=== PATIENT | female | born 1955 | race Caucasian/White ===

== ENCOUNTER 2017-12-13 13:48 | Emergency (ER) | payer OTHER ==
[2017-12-13] MEDS ORDERED: Sodium Chloride 0.9% 1000 ML 1,000 ML IV STA (14:11)
[2017-12-13] MEDS ORDERED: THORAZINE 50 MG*** 50 MG in Sodium Chloride 0.9% 100 ML IVPB 100 ML IV ONE (14:11)
[2017-12-13] MEDS ORDERED: Magnesium 1 Gm / 100 Ml D5W*** 100 ML IV SCH (14:15)
--- NOTE | 2017-12-13 14:16 | ERPHSYRPT ---
- History of Present Illness Time Seen by Provider: 12/13/17 14:00 Source: patient, family Patient Subjective Stated Complaint: Pt arrives to ER with c/o migraine that pt states "started in my right arm and went up into my head" since Monday. Denies N /V/D, fever, abodminal pain or any other sx. Triage Nursing Assessment: Pt denies photophobia. Appears to be in pain but is in no acute distress at this time. Physician History: CC: headache Hx: 62 y/o patient of Dr CORINNA Bradley. She has hx of fibromyalgia, migraines, and arnold chiari. She has frequent headaches, last this bad was a few months ago. She has headache since Monday (3 days), started with pain in her right arm, then right neck and then head. Unable to sleep. Not better with ASA. No fever or chills. No photophobia. Has been weaned off norco. No N/T/W. No injury. Quality: aching Severity of Pain-Max: severe Severity of Pain-Current: severe Allergies/Adverse Reactions: betamethasone [From Celestone] Allergy (Intermediate, Verified 07/06/15 06:32) itchy throat some tightness ketorolac [From Toradol] Allergy (Intermediate, Verified 12/13/17 14:02) Itching morphine Allergy (Intermediate, Verified 12/13/17 14:02) Itching Home Medications: Fluoxetine HCl [Prozac] 1 tab PO DAILY 04/17/12 [History] Albuterol Sulfate [Proventil Hfa] 2 puffs IH Q4HPRN PRN 07/01/15 [History] Hctz/Triamterene 25/37.5 mg [Maxzide 25MG] 25 mg PO DAILY 12/13/17 [History] Lisinopril [Lisinopril] 10 mg PO DAILY 12/13/17 [History] Omeprazole [Prilosec] 20 mg PO BID 12/13/17 [History] Hx Tetanus, Diphtheria Vaccination/Date Given: Yes Hx Influenza Vaccination/Date Given: Yes Hx Pneumococcal Vaccination/Date Given: Yes Immunizations Up to Date: Yes - Review of Systems Constitutional: No Fever, No Chills Eyes: No Photophobia, No Vision Changes Ears, Nose, & Throat: No Symptoms Respiratory: No Symptoms Cardiac: No Chest Pain Abdominal/Gastrointestinal: No Abdominal Pain, No Nausea, No Vomiting Musculoskeletal: Myalgias, No Back Pain Skin: No Rash Neurological: Headache, No Focal Weakness, No Parasthesia All Other Systems: Reviewed and Negative - Past Medical History Pertinent Past Medical History: Yes Neurological History: No Pertinent History ENT History: No Pertinent History Cardiac History: Hypertension Respiratory History: COPD Endocrine Medical History: No Pertinent History Musculoskeletal History: Fibromyalgia, Osteoporosis GI Medical History: No Pertinent History Psycho-Social History: Anxiety Female Reproductive Disorders: Other Other Medical History: nya malformation, had brain surgery 1996, - Past Surgical History Past Surgical History: Yes Neuro Surgical History: Neurological Surgery Cardiac: No Pertinent History Respiratory: No Pertinent History Gastrointestinal: No Pertinent History Genitourinary: No Pertinent History Musculoskeletal: No Pertinent History Female Surgical History: Hysterectomy Other Surgical History: Archold Chiari Malformation - Social History Smoking Status: Current every day smoker How long have you smoked: 40 yrs Exposure to second hand smoke: Yes Drug Use: none Patient Lives Alone: No - Female History Hx Last Menstrual Period: hysterectomy Hx Now: No - Nursing Vital Signs Nursing Vital Signs: Initial Vital Signs Temperature 98.6 F 12/13/17 13:51 Pulse Rate 98 H 12/13/17 13:51 Respiratory Rate 18 12/13/17 13:51 Blood Pressure 156/97 12/13/17 13:51 O2 Sat by Pulse Oximetry 98 12/13/17 13:51 Pain Scale Pain Intensity 4 - Physical Exam General Appearance: alert Eye Exam: PERRL/EOMI Ears, Nose, Throat Exam: normal ENT inspection, moist mucous membranes Neck Exam: normal inspection, non-tender, supple Respiratory Exam: normal breath sounds, lungs clear Cardiovascular Exam: regular rate/rhythm Gastrointestinal/Abdominal Exam: soft, No tenderness, No distention Back Exam: normal inspection, normal range of motion Extremity Exam: normal inspection, normal range of motion Mental Status Exam: alert, 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, cooperative body trimmer Exam: normal hearing, normal speech Coordination/Gait Exam: normal cerebellar function Motor/Sensory Exam: no motor deficit, no sensory deficit, no pronator drift Skin Exam: warm, dry, No rash SpO2 Interpretation: normal SpO2: 98 Oxygen Delivery: Room Air - Course Nursing assessment & vital signs reviewed: Yes Ordered Tests: Active Orders 24 hr Category Date Time Status Housekeeper Home STAT Care 12/13/17 14:11 Active IV Insertion STAT Care 12/13/17 14:11 Active Pulse Oximetry (ED) STAT Care 12/13/17 14:11 Active VENOUS BLOOD GAS Urgent Lab 12/13/17 15:00 Completed Medication Summary Generic Name Dose Route Start Last Admin Trade Name To PRN Reason Stop Dose Admin Dexamethasone Sodium Phosphate 10 mg 12/13/17 16:27 Decadron 10mg Inj. IV 12/13/17 16:28 STAT ONE Discontinued Medications Generic Name Dose Route Start Last Admin Trade Name To PRN Reason Stop Dose Admin Chlorpromazine HCl 50 mg/ 102 mls @ 100 mls/hr 12/13/17 14:11 12/13/17 14:54 Sodium Chloride IV 12/13/17 15:12 100 mls/hr STAT ONE Administration Magnesium Sulfate/Dextrose 100 mls @ 100 mls/hr 12/13/17 14:15 12/13/17 14:44 Magnesium 1 Gm / 100 Ml D5w IV 12/13/17 16:14 100 mls/hr Q1H NANDO Administration Sodium Chloride 1,000 mls @ 999 mls/hr 12/13/17 14:11 12/13/17 14:44 Sodium Chloride 0.9% 1000 Ml IV 12/13/17 15:11 999 mls/hr .Q1H1M STA Administration Magnesium Sulfate/Dextrose Confirm 12/13/17 14:36 Magnesium 1 Gm / 100 Ml D5w Administered 12/13/17 14:37 Dose 100 mls @ ud IV .STK-MED ONE Sodium Chloride Confirm 12/13/17 14:36 Sodium Chloride 0.9% 1000 Ml Administered 12/13/17 14:37 Dose 1,000 mls @ ud .ROUTE .STK-MED ONE Magnesium Sulfate/Dextrose Confirm 12/13/17 14:40 Magnesium 1 Gm / 100 Ml D5w Administered 12/13/17 14:41 Dose 100 mls @ ud IV .STK-MED ONE Lab/Rad Data: Laboratory Results 12/13/17 Range/Units 15:00 pO2/FiO2 Ratio 21.0 % VBG pH 7.37 (7.32-7.42) VBG pCO2 at Pat Temp 43 (42-55) mm/Hg VBG pO2 at Pat Temp 42 H (25-40) mm/Hg VBG HCO3 24.9 (22-28) meq/L VBG O2 Sat ([place]) 79.0 L (95-100) VBG Base Excess -0.6 (-2.0-2.0) VBG Hemoglobin 13.4 VBG Carboxyhemoglobin 0.0 (0.0-6.9) % T HGB POC Potassium 3.7 (3.5-5.1) - Progress Progress Note: 12/13/17 14:16 She is allergic to toradol. States "I just want to be able to sleep." No reglan available. Will given thorazine gtt for headache. 12/13/17 16:27 She feels better after mag sulfate, IVF, and thorazine. She still has some lancinating pain in right head. No rash. ?neuritis. Will give decadron. Release to follow up with Dr Barakat. Counseled pt/family regarding: lab results, diagnosis, need for follow-up - Departure Time of Disposition: 16:28 Departure Disposition: Home Clinical Impression: Headache Condition: Stable Critical Care Time: No Referrals: NHUNG BARAKAT [Primary Care Provider] - Instructions: Headache, Adult (DC) Additional Instructions: HEADACHE 1. After discharge from the emergency department, you should rest at home in a cool, dark, quiet place for 12-24 hours. 2. If any of the following signs or symptoms are noticed, you should be re- evaluated right away: A. Visual changes B. Stiff Neck C. Change in quality or location of pain D. Fever E. Recurrent vomiting 3. If pain medications were prescribed or given, they may cause drowsiness. No driving tonite and stay with . Call in AM to see Dr Barakat this week for recheck. Return for problems or concerns.
[2017-12-13] MEDS ORDERED: Magnesium 1 Gm / 100 Ml D5W*** 100 ML IV ONE ×2 (14:36→14:40)
[2017-12-13] MEDS ORDERED: Sodium Chloride 0.9% 1000 ML 1,000 ML ONE (14:36)
[2017-12-13 15:11] LABS: VBG BASE EXCESS -0.6 (-2.0-2.0); VBG HCO3- 24.9 meq/L (22-28); VBG HEMOGLOBIN 13.4; VBG POTASSIUM 3.7 (3.5-5.1); VBG pH 7.37 (7.32-7.42)
[2017-12-13] MEDS ORDERED: DECADRON 10MG INJ. IV ONE (16:27)
[2017-12-13 16:29] VITALS: O2SAT 98
[2017-12-13] MEDS ORDERED: DECADRON 10MG INJ. ONE (16:29)
[2017-12-13] MEDS ORDERED: Sodium Chloride 0.9% 100 ML IVPB 100 ML IV ONE (16:29)
[2017-12-13 17:43] VITALS: BP 109/89; PULSE 101
== END 2017-12-13 17:47 | disposition home or self-care (01) ==
LOC: ED 13:48
DX: R51 Headache (principal); Z79.899 Other long term (current) drug therapy
CPT/HCPCS: 36000; 82805; 93041; 96360; 96365; 96367; 96374; 99284; J1100; J3230; J3475

== ENCOUNTER 2021-07-05 11:15 | Emergency (ER) | payer OTHER ==
--- NOTE | 2021-07-05 11:22 | ERPHSYRPT ---
- History of Present Illness Time Seen by Provider: 07/05/21 11:22 Source: patient Exam Limitations: no limitations Physician History: This is a right-handed 66-year-old white female patient of Dr. Barakat who stated that she tripped over something and fell into a couch injuring her left upper arm and elbow. She did not lose consciousness. There is no neck pain or head pain. Patient takes Percocet chronically and took one of her Percocet pills at 8 AM this morning. Since her fall she has not taken any Percocet medication. Occurred: just prior to arrival Reason for Fall: tripped Injuries/Pain Location: upper extremity Loss of Consciousness: no loss of consciousness (Left) Quality: aching Severity of Pain-Max: moderate Severity of Pain-Current: moderate Modifying Factors: Improves With: movement Associated Symptoms (Fall): extremity injury (Pain left upper extremity) Allergies/Adverse Reactions: betamethasone [From Celestone] Allergy (Intermediate, Verified 07/05/21 11:29) itchy throat some tightness ketorolac [From Toradol] Allergy (Intermediate, Verified 07/05/21 11:29) Itching morphine Allergy (Intermediate, Verified 07/05/21 11:29) Itching Home Medications: Fluoxetine HCl [Prozac] 1 tab PO DAILY 04/17/12 [History] Albuterol Sulfate [Proventil Hfa] 2 puffs IH Q4HPRN PRN 07/01/15 [History] Hctz/Triamterene 25/37.5 mg [Maxzide 25MG] 25 mg PO DAILY 12/13/17 [History] Omeprazole [Prilosec] 20 mg PO BID 12/13/17 [History] lisinopriL [Lisinopril] 10 mg PO DAILY 12/13/17 [History] Cyclobenzaprine HCl [Flexeril] 5 mg PO DAILY 07/05/21 [History] Oxycodone HCl/Acetaminophen [Oxycodone-Acetaminophen 5-325] 1 each PO DAILY 07/05/21 [History] Hx Tetanus, Diphtheria Vaccination/Date Given: Yes Hx Influenza Vaccination/Date Given: Yes Hx Pneumococcal Vaccination/Date Given: Yes Travel Risk - International Travel Have you traveled outside of the country in past 3 weeks: No - Coronavirus Screening Are you exhibiting any of the following symptoms?: No Close contact with a COVID-19 positive Pt in past 14-21 Days: No - Review of Systems Constitutional: No Symptoms Eyes: No Symptoms Ears, Nose, & Throat: No Symptoms Respiratory: No Symptoms Cardiac: No Symptoms Abdominal/Gastrointestinal: No Symptoms Genitourinary Symptoms: No Symptoms Musculoskeletal: Fall (Left upper arm), Injury Skin: No Symptoms Neurological: No Symptoms Psychological: No Symptoms Endocrine: No Symptoms Hematologic/Lymphatic: No Symptoms Immunological/Allergic: No Symptoms All Other Systems: Reviewed and Negative - Past Medical History Pertinent Past Medical History: Yes Neurological History: No Pertinent History ENT History: No Pertinent History Cardiac History: Hypertension Respiratory History: COPD Endocrine Medical History: No Pertinent History Musculoskeletal History: Fibromyalgia, Osteoporosis GI Medical History: No Pertinent History Psycho-Social History: Anxiety Female Reproductive Disorders: Other Other Medical History: nya malformation, had brain surgery 1996, - Past Surgical History Past Surgical History: Yes Neuro Surgical History: Neurological Surgery Cardiac: No Pertinent History Respiratory: No Pertinent History Gastrointestinal: No Pertinent History Genitourinary: No Pertinent History Musculoskeletal: No Pertinent History Female Surgical History: Hysterectomy Other Surgical History: Archold Chiari Malformation - Social History Smoking Status: Current every day smoker How long have you smoked: 40 yrs Exposure to second hand smoke: Yes Drug Use: none Patient Lives Alone: No - Nursing Vital Signs Nursing Vital Signs: Initial Vital Signs Temperature 97.6 F 07/05/21 11:22 Pulse Rate 93 H 07/05/21 11:22 Respiratory Rate 20 07/05/21 11:22 Blood Pressure 106/76 07/05/21 11:22 O2 Sat by Pulse Oximetry 96 07/05/21 11:22 Pain Scale Pain Intensity 10 - [place] Coma Score Best Eye Response (Tobias): (4) open spontaneously Best Verbal Response ([place]): (5) oriented Best Motor Response ([place]): (6) obeys commands [place] Total: 15 - Physical Exam General Appearance: no apparent distress, alert, anxiety Head Injury: no evidence of injury Eye Exam: PERRL/EOMI, eyes nml inspection ENT Exam: airway nml, nml ext.inspection Neck Exam: supple, trachea midline, full range of motion, normal alignment, normal inspection Respiratory/Chest Exam: No chest tenderness, No respiratory distress, No crepitus Cardiovascular Exam: normal peripheral pulses Gastrointestinal Exam: No tenderness Rectal Exam: not done Back Exam: normal inspection, normal range of motion, No CVA tenderness, No vertebral tenderness Extremity Exam: normal inspection, limited range of motion (Secondary to pain), tenderness (Left upper humerus mid humerus distal humerus at elbow site with palpation), No deformities, No evidence of injury Neurologic Exam: alert, 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, cooperative, synthetic plasterer II-XII nml as tested, normal mood/affect, nml cerebellar function, nml station & gait, sensation nml Skin Exam: normal color, warm, dry SpO2 Interpretation: normal O2 Delivery: Room Air - Course Nursing assessment & vital signs reviewed: Yes Ordered Tests: Active Orders 24 hr Category Date Time Status Sling Application STAT Care 07/05/21 12:25 Active ELBOW (MINIMUM 3 VIEWS) Stat Exams 07/05/21 11:37 Completed HUMERUS Stat Exams 07/05/21 11:37 Completed SHOULDER Stat Exams 07/05/21 11:37 Completed Medication Summary Discontinued Medications Generic Name Dose Route Start Last Admin Trade Name Freq PRN Reason Stop Dose Admin Hydromorphone HCl 1 mg 07/05/21 12:31 07/05/21 12:34 Hydromorphone 1 Mg/1ml Inj 1 Mg/Ml Syringe IM 07/05/21 12:32 1 mg STAT ONE Administration Hydromorphone HCl Confirm 07/05/21 12:31 Hydromorphone 1 Mg/1ml Inj 1 Mg/Ml Syringe Administered 07/05/21 12:32 Dose 1 mg .ROUTE .STK-MED ONE Ondansetron HCl 4 mg 07/05/21 12:25 07/05/21 12:34 Zofran 4 Mg/Udtablet Orally Disintegrating PO 07/05/21 12:26 4 mg STAT ONE Administration Ondansetron HCl Confirm 07/05/21 12:31 Zofran 4 Mg/Udtablet Orally Disintegrating Administered 07/05/21 12:32 Dose 4 mg .ROUTE .STK-MED ONE - Progress Progress: improved, pain not gone completely, re-examined Progress Note: 07/05/21 12:26 X-ray of left shoulder shows a nondisplaced humeral head/neck comminuted fracture. Left humerus x-ray shows a nondisplaced humeral head/neck comminuted fracture. Left elbow x-ray shows no acute fracture or dislocation. 07/05/21 12:35 Medical decision making: We attempted to obtain an orthopedic clinic visit this afternoon for this patient. However, they are not in this afternoon but will be there first thing in the morning at 8 AM. Patient will be sent home with a sling in place. Patient has Percocet pain medicine at home. She will follow up in the [facility] orthopedic clinic tomorrow morning at 8 AM Counseled pt/family regarding: diagnosis, need for follow-up, rad results - Departure Departure Disposition: Home Clinical Impression: Closed left humeral fracture Condition: Stable Critical Care Time: No Referrals: NHUNG BARAKAT [Primary Care Provider] - [facility]-Ortho M-F [phone] Additional Instructions: Wear sling for comfort. Continue your Percocet pain medicine as prescribed. Follow-up in our [facility] orthopedic clinic tomorrow (07/06/2021) at 8 AM.
--- NOTE | 2021-07-05 12:15 | XRAY ---
Indication: Pain following fall. Comparison: None 3 view left elbow demonstrates osteopenia. No other bony, articular, or soft tissue abnormalities.
--- NOTE | 2021-07-05 12:15 | XRAY ---
Indication: Pain following fall. Comparison: None 2 view left humerus demonstrates osteopenia and nondisplaced humeral head/neck comminuted fracture. No other bony, articular, or soft tissue abnormalities.
--- NOTE | 2021-07-05 12:20 | XRAY ---
Indication: Pain following fall. Comparison: None 3 view left shoulder demonstrates osteopenia and nondisplaced humeral head/neck comminuted fracture. No other bony, articular, or soft tissue abnormalities.
[2021-07-05] MEDS ORDERED: ZOFRAN ODT 4 MG PO ONE (12:25)
[2021-07-05] MEDS ORDERED: Hydromorphone 1 mg/ml Injection ONE (12:31)
[2021-07-05] MEDS ORDERED: ZOFRAN ODT 4 MG ONE (12:31)
[2021-07-05] MEDS ORDERED: Hydromorphone 1 mg/ml Injection IM ONE (12:31)
[2021-07-05 13:26] VITALS: BP 120/77; PULSE 90; O2SAT 97
== END 2021-07-05 13:17 | disposition home or self-care (01) ==
LOC: ED 11:15
DX: S42.402A Unspecified fracture of lower end of left humerus, initial encounter for closed fracture (principal); W01.190A Fall on same level from slipping, tripping and stumbling with subsequent striking against furniture, initial encounter; Y93.89 Activity, other specified; Y92.89 Other specified places as the place of occurrence of the external cause; M79.622 Pain in left upper arm; Z79.899 Other long term (current) drug therapy; M81.0 Age-related osteoporosis without current pathological fracture
CPT/HCPCS: 73030; 73060; 73080; 96372; 99284; J1170; Q0162

== ENCOUNTER 2021-11-24 14:28 | Day surgery (SDC) | payer OTHER ==
[2012-07-08 01:00] VITALS: BP 106/70
[~2021-11-24 14:28] MED LIST: DIPRIVAN 200 MG/20 ML IV ONE
[2021-11-24] MEDS ORDERED: BUPIVACAINE 0.5% VIAL IJ ONE (14:29)
[2021-11-24] MEDS ORDERED: Depo-Medrol 40 MG/ML IM ONE (14:29)
[2021-11-24] MEDS ORDERED: Lactated Ringers 1,000 ML IV ONE (15:52)
--- NOTE | 2021-11-24 18:31 | XRAY ---
Indication: Left shoulder injection. Intraoperative fluoroscopy provided for 12 seconds. Single digital spot image submitted for interpretation demonstrates needle tip projecting over the left glenohumeral joint superiorly. Small amount of contrast injected for needle tip placement. Correlate with intraoperative findings/report.
--- NOTE | 2021-11-25 08:35 | XRAY ---
12 seconds fluoroscopy time in surgery for intra-articular injection of the left shoulder.
== END 2021-11-24 18:00 | disposition home or self-care (01) ==
LOC: SDC-PAIN 14:28
PROVIDERS: ATTEND Psychiatry & Neurology Pain Medicine
DX: M19.012 Primary osteoarthritis, left shoulder (principal); I10 Essential (primary) hypertension; Z79.899 Other long term (current) drug therapy
CPT/HCPCS: 20610; 73030; 77002; J1030; J2704; Q9966

== ENCOUNTER 2022-02-23 11:50 | Emergency (ER) | payer MEDICARE, OTHER ==
[2022-02-23] MEDS ORDERED: BENADRYL 50 MG/ML IV ONE (12:17)
[2022-02-23] MEDS ORDERED: Sodium Chloride 0.9% 1000 ML 1,000 ML IV STA (12:17)
[2022-02-23] MEDS ORDERED: TYLENOL 325 MG PO ONE (12:17)
--- NOTE | 2022-02-23 12:23 | ERPHSYRPT ---
- History of Present Illness Time Seen by Provider: 02/23/22 12:12 Source: patient Exam Limitations: no limitations Patient Subjective Stated Complaint: headache since yesterday, left side of head that is radiating down to the left jaw, pulsating pain that doesn't quit Triage Nursing Assessment: Pt brought to the ER by her , tachycardic, h ypertensive, crying, rates pain 10/10, no difficulties with strength, hx of brain surgery, has taken percocet since yesterday with no relief, little sleep last night, denies blurred vision, denies N&V, pain is on the left side of head and radiates downward toward her jaw, eating hurts her jaw but she did eat some cereal prior to taking percocet at 1000, states that it feels like labor pains in her head Physician History: Patient here with headache 10 out of 10 starting yesterday. Left-sided. Maybe complains of some mild associated left sided numbness. No falls no trauma. No fever no chills. No signs of meningitis. Patient states she has a history of Chiari malformation with surgery by Dr. Rene Franco of [place]. Timing/Duration: yesterday Quality: stabbing Head Pain Location: parietal Severity of Pain-Max: mild Severity of Pain-Current: mild Recent Head Trauma: no recent headache/trauma Modifying Factors: Improves With: other Associated Symptoms: other (numbness) Previous symptoms: other (previous brain surgery ) Allergies/Adverse Reactions: betamethasone [From Celestone] Allergy (Intermediate, Verified 02/23/22 12:04) itchy throat some tightness ketorolac [From Toradol] Allergy (Intermediate, Verified 02/23/22 12:04) Itching morphine Allergy (Intermediate, Verified 02/23/22 12:04) Itching Home Medications: Fluoxetine HCl [Prozac] 20 mg PO DAILY 04/17/12 [History] Hctz/Triamterene 25/37.5 mg [Maxzide 25MG] 25 mg PO DAILY 12/13/17 [History] Omeprazole [Prilosec] 20 mg PO BID 12/13/17 [History] lisinopriL [Lisinopril] 10 mg PO DAILY 12/13/17 [History] Cyclobenzaprine HCl [Flexeril] 5 mg PO DAILY PRN 07/05/21 [History] Oxycodone HCl/Acetaminophen [Oxycodone-Acetaminophn 7.5-325] 1 tab PO Q6H PRN 02/23/22 [History] Ropinirole HCl 1 mg PO HS 02/23/22 [History] Hx Tetanus, Diphtheria Vaccination/Date Given: Yes Hx Influenza Vaccination/Date Given: Yes Hx Pneumococcal Vaccination/Date Given: Yes Travel Risk - International Travel Have you traveled outside of the country in past 3 weeks: No - Coronavirus Screening Are you exhibiting any of the following symptoms?: No Close contact with a COVID-19 positive Pt in past 14-21 Days: No - Vaccine Status Have you recieved a Covid-19 vaccination: Yes 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[employer] - Vaccination Dates Date of 2cond Vaccination (if applicable): none - Review of Systems Constitutional: No Fever, No Chills Eyes: No Symptoms Ears, Nose, & Throat: No Symptoms Respiratory: No Cough, No Dyspnea Cardiac: No Chest Pain, No Edema, No Syncope Abdominal/Gastrointestinal: No Abdominal Pain, No Nausea, No Vomiting, No Diarrhea Genitourinary Symptoms: No Dysuria Musculoskeletal: No Back Pain, No Neck Pain Skin: No Rash Neurological: Headache, No Dizziness, No Focal Weakness, No Sensory Changes Psychological: No Symptoms Endocrine: No Symptoms All Other Systems: Reviewed and Negative - Past Medical History Pertinent Past Medical History: Yes Neurological History: No Pertinent History ENT History: No Pertinent History Cardiac History: Hypertension Respiratory History: COPD Endocrine Medical History: No Pertinent History Musculoskeletal History: Fibromyalgia, Osteoporosis GI Medical History: No Pertinent History Psycho-Social History: Anxiety Female Reproductive Disorders: Other Other Medical History: nya malformation, had brain surgery 1996, - Past Surgical History Past Surgical History: Yes Neuro Surgical History: Neurological Surgery Cardiac: No Pertinent History Respiratory: No Pertinent History Gastrointestinal: No Pertinent History Genitourinary: No Pertinent History Musculoskeletal: No Pertinent History Female Surgical History: Hysterectomy Other Surgical History: Archold Chiari Malformation - Social History Smoking Status: Current every day smoker How long have you smoked: 40 yrs Exposure to second hand smoke: Yes Drug Use: none Patient Lives Alone: No - Nursing Vital Signs Nursing Vital Signs: Initial Vital Signs Temperature 97.6 F 02/23/22 11:55 Pulse Rate 112 H 02/23/22 11:55 Blood Pressure 154/97 02/23/22 11:55 O2 Sat by Pulse Oximetry 97 02/23/22 11:55 Pain Scale Pain Intensity 8 - Physical Exam General Appearance: no apparent distress Eye Exam: PERRL/EOMI Ears, Nose, Throat Exam: normal ENT inspection, moist mucous membranes Neck Exam: normal inspection, supple, full range of motion, No meningismus Respiratory Exam: normal breath sounds, lungs clear Cardiovascular Exam: regular rate/rhythm, normal heart sounds Gastrointestinal/Abdominal Exam: soft, No tenderness, No distention Back Exam: normal inspection, normal range of motion Extremity Exam: normal inspection, normal range of motion Mental Status Exam: alert, 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, 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 Exam: normal hearing, normal speech, PERRL, No facial asymmetry, No facial droop, No facial paresthesias, No facial weakness, No gaze palsy Coordination/Gait Exam: normal cerebellar function Motor/Sensory Exam: no motor deficit, no sensory deficit Skin Exam: normal color, warm, dry, No rash SpO2: 97 - Course Nursing assessment & vital signs reviewed: Yes EKG Interpreted by Me: Sinus Rhythm Ordered Tests: Active Orders 24 hr Category Date Time Status IV Insertion STAT Care 02/23/22 12:17 Active HEAD WITHOUT CONTRAST [CT] Stat Exams 02/23/22 13:15 Completed CBC W DIFF Stat Lab 02/23/22 12:15 Completed CMP Stat Lab 02/23/22 12:15 Completed PROTIME WITH INR Stat Lab 02/23/22 12:15 Completed UA W/RFX CULTURE Stat Lab 02/23/22 13:05 Ordered Urine Triage Profile Stat Lab 02/23/22 13:05 Ordered Medication Summary Discontinued Medications Generic Name Dose Route Start Last Admin Trade Name To PRDoug Reason Stop Dose Admin Acetaminophen 975 mg 02/23/22 12:17 02/23/22 12:35 Acetaminophen 325 Mg Tablet PO 02/23/22 12:18 975 mg STAT ONE Administration Acetaminophen Confirm 02/23/22 12:27 Acetaminophen 325 Mg Tablet Administered 02/23/22 12:28 Dose 975 mg .ROUTE .STK-MED ONE Acetaminophen Confirm 02/23/22 12:37 Acetaminophen 325 Mg Tablet Administered 02/23/22 12:38 Dose 325 mg .ROUTE .STK-MED ONE Diphenhydramine HCl 25 mg 02/23/22 12:17 02/23/22 12:34 Diphenhydramine Hcl 50 Mg/Ml Vial IV 02/23/22 12:18 25 mg STAT ONE Administration Diphenhydramine HCl Confirm 02/23/22 12:27 Diphenhydramine Hcl 50 Mg/Ml Vial Administered 02/23/22 12:28 Dose 50 mg .ROUTE .STK-MED ONE Droperidol 1.25 mg 02/23/22 12:17 02/23/22 12:33 Droperidol 5 Mg/2 Ml Vial IV 02/23/22 12:18 1.25 mg STAT ONE Administration Droperidol Confirm 02/23/22 12:27 Droperidol 5 Mg/2 Ml Vial Administered 02/23/22 12:28 Dose 5 mg .ROUTE .STK-MED ONE Sodium Chloride 1,000 mls @ 999 mls/hr 02/23/22 12:17 02/23/22 12:32 Sodium Chloride 0.9% 1000 Ml IV 02/23/22 13:17 999 mls/hr .Q1H1M STA Administration Sodium Chloride Confirm 02/23/22 12:27 Sodium Chloride 0.9% 1000 Ml Administered 02/23/22 12:28 Dose 1,000 mls @ ud .ROUTE .STK-MED ONE Lab/Rad Data: Laboratory Result Diagrams 02/23/22 12:15 02/23/22 12:15 Laboratory Results 02/23/22 02/23/22 02/23/22 Range/Units 12:15 12:15 12:15 WBC 9.5 (4.0-10.5) x10^3/uL RBC 4.03 L (4.1-5.4) x10^6/uL Hgb 12.9 (12.0-16.0) g/dL Hct 38.5 (35-47) % MCV 95.5 (78-100) fL MCH 32.0 (26-32) pg MCHC 33.5 (32-36) g/dL RDW 13.0 (11.5-14.0) % Plt Count 291 (150-450) x10^3/uL MPV 9.8 (7.5-11.0) fL Gran % 71.8 H (36.0-66.0) % Immature Gran % (Auto) 0.2 (0.00-0.4) % Nucleat RBC Rel Count 0.0 (0.00-0.1) % Eos # (Auto) 0.11 (0-0.5) x10^3/uL Immature Gran # (Auto) 0.02 (0.00-0.03) x10^3u/L Absolute Lymphs (auto) 1.85 (1.0-4.6) x10^3/uL Absolute Monos (auto) 0.57 (0.0-1.3) x10^3/uL Absolute Nucleated RBC 0.00 (0.00-0.01) x10^3u/L Lymphocytes % 19.5 L (24.0-44.0) % Monocytes % 6.0 (0.0-12.0) % Eosinophils % 1.2 (0.00-5.0) % Basophils % 1.3 (0.0-0.4) % Absolute Granulocytes 6.81 (1.4-6.9) x10^3/uL Basophils # 0.12 (0-0.4) x10^3/uL PT 10.6 (9.4-12.5) SECONDS INR 1.00 (0.8-3.0) Sodium 140 (137-145) mmol/L Potassium 3.7 (3.5-5.1) mmol/L Chloride 103 (98-107) mmol/L Carbon Dioxide 27 (22-30) mmol/L Anion Gap 12.9 (5-15) MEQ/L BUN 15 (7-17) mg/dL Creatinine 1.22 H (0.52-1.04) mg/dL Estimated GFR 47.2 ML/MIN Glucose 156 H (74-106) mg/dL Calcium 9.4 (8.4-10.2) mg/dL Total Bilirubin 0.40 (0.2-1.3) mg/dL AST 21 (14-36) U/L ALT 13 (0-35) U/L Alkaline Phosphatase 73 (38-126) U/L Serum Total Protein 7.2 (6.3-8.2) g/dL Albumin 4.1 (3.5-5.0) g/dL - Progress Progress: improved Air Movement: good Progress Note: 02/23/22 12:22 Differential diagnosis includes head bleed, migraine, narcotic rebound headache. -Plan for head CT, fluids, migraine cocktail, Tylenol, basic labs. 02/23/22 13:40 Headache almost completely resolved with interventions here. Head CT showed no head bleed, other abnormalities. We will give a dose of Decadron and Toradol here. Patient stated Toradol allergy is itching. However I do believe Decadron will help with her symptoms as well. Discussing with the patient, I do believe she is having narcotic withdrawal headaches. Patient states that she takes 4-5 Percocet a day. I did discuss the risks and benefits of long-term narcotic use and how this can lead to severe rebound headaches. She states her understanding and will discuss all this with her PCP. Strict return precautions given, patient should absolutely return here for any new or changing symptoms. Complete neurological reexam remained stable. No signs of meningitis. Low suspicion for stroke or subarachnoid. - Departure Departure Disposition: Home Clinical Impression: Headache Condition: Stable Critical Care Time: No Referrals: NHUNG CASTANON [Primary Care Provider] - Follow up/PCP as directed Instructions: Headache, Adult (DC)
[2022-02-23] MEDS ORDERED: BENADRYL 50 MG/ML ONE (12:27)
[2022-02-23] MEDS ORDERED: TYLENOL 325 MG ONE ×2 (12:27→12:37)
[2022-02-23] MEDS ORDERED: Sodium Chloride 0.9% 1000 ML 1,000 ML ONE (12:27)
[2022-02-23 12:34] LABS: Absolute Neutrophil Ct (ANC) 6.81 x10^3/uL (1.4-6.9); Basophil (Absolute #) 0.12 x10^3/uL (0-0.4); Eosinophil % 1.2 % (0.00-5.0); Eosinophil (Absolute #) 0.11 x10^3/uL (0-0.5); Hematocrit 38.5 % (35-47); Hemoglobin 12.9 g/dL (12.0-16.0); Lymphocyte (Absolute #) 1.85 x10^3/uL (1.0-4.6); Lymphocytes % 19.5 % (24.0-44.0); Mean Cell Volume 95.5 fL (78-100); Mean Corpuscular Hgb Concent. 33.5 g/dL (32-36); Mean Platelet Volume 9.8 fL (7.5-11.0); Monocyte (Absolute #) 0.57 x10^3/uL (0.0-1.3); Neutrophil % 71.8 % (36.0-66.0); Platelet Count 291 x10^3/uL (150-450); Red Blood Count 4.03 x10^6/uL (4.1-5.4); White Blood Count 9.5 x10^3/uL (4.0-10.5)
[2022-02-23 12:41] LABS: ALBUMIN 4.1 g/dL (3.5-5.0); ANION GAP 12.9 MEQ/L (5-15); BILIRUBIN,TOTAL 0.4 mg/dL (0.2-1.3); Calcium 9.4 mg/dL (8.4-10.2); Creatinine 1 1.22 mg/dL (0.52-1.04); EST GLOMERULAR FILTRATION RATE 47.2 ML/MIN; Potassium 3.7 mmol/L (3.5-5.1); Total Protein 7.2 g/dL (6.3-8.2)
[2022-02-23 12:53] LABS: PROTIME 10.6 SECONDS (9.4-12.5)
[2022-02-23 13:05] VITALS: PULSE 96
[2022-02-23 13:25] LABS: Epithelial Cells RARE /HPF (FEW); Mucus SLIGHT /HPF (NEGATIVE); WBC 0-2 /HPF (0-5)
--- NOTE | 2022-02-23 13:32 | XRAY ---
Indication: Left temporoparietal headache 2 days. Multiple contiguous axial images obtained through the head without contrast. Comparison: August 21, 2016. Continued normal appearing brain parenchyma and ventricles. Bony calvarium intact again with previous occipital decompression. Visualized paranasal sinuses and mastoid air cells are clear. Impression: Continued negative CT head without contrast exam.
[2022-02-23] MEDS ORDERED: DECADRON 10MG INJ. IV ONE (13:39)
[2022-02-23] MEDS ORDERED: TORAdol 30 mg Injection IV ONE (13:40)
[2022-02-23 13:50] LABS: Appearance CLEAR (CLEAR); Bilirubin NEGATIVE (NEGATIVE); Glucose NEGATIVE (NEGATIVE); Ketones NEGATIVE (NEGATIVE); Protein,Urine Dip NEGATIVE (Negative); RBC TRACE NON-HEM Ery/ul (0-5); Urobilinogen 0.2 mg/dL (0-1)
[2022-02-23 13:51] LABS: Bacteria NONE SEEN /HPF (NEGATIVE); Dipstick done @ ? MAIN LAB; Nitrite NEGATIVE (NEGATIVE); Urine Cultured Indicated? NO
[2022-02-23] MEDS ORDERED: DECADRON 10MG INJ. ONE (13:54)
[2022-02-23] MEDS ORDERED: TORAdol 30 mg Injection ONE (13:54)
[2022-02-23 14:08] VITALS: O2SAT 98
[2022-02-23 14:09] VITALS: BP 107/90
[2022-02-23 14:09] LABS: Amphetamine,Urine NEGATIVE (NEGATIVE); Barbiturate,Urine NEGATIVE (NEGATIVE); Benzodiazepine,Urine NEGATIVE (NEGATIVE); Cocaine,Urine NEGATIVE (NEGATIVE); Methadone,Urine NEGATIVE (NEGATIVE); Opiate,Urine NEGATIVE (NEGATIVE); PCP,Urine NEGATIVE (NEGATIVE); THC,Urine NEGATIVE (NEGATIVE)
== END 2022-02-23 14:26 | disposition home or self-care (01) ==
LOC: ED 11:50
DX: R51.9 Headache, unspecified (principal); I10 Essential (primary) hypertension; J44.9 Chronic obstructive pulmonary disease, unspecified; Z72.0 Tobacco use; Z79.891 Long term (current) use of opiate analgesic; Z79.899 Other long term (current) drug therapy
CPT/HCPCS: 36000; 36415; 70450; 80053; 80307; 81015; 85025; 85610; 96360; 96374; 96375; 99284; J1100; J1200; J1885; A9270-GY

== ENCOUNTER 2022-06-01 15:30 | Emergency (ER) | payer MEDICARE ==
--- NOTE | 2022-06-01 16:11 | ERPHSYRPT ---
- History of Present Illness Source: patient Exam Limitations: no limitations Patient Subjective Stated Complaint: PT HERE FOR COUGH,CHILLS, AND PAIN BETWEEN SHOULDER BLADES,WAS SET HERE FROM CLINIC, Triage Nursing Assessment: PT ALERT, HAS DRY HACKY COUGH, RESP LABORED, FACE MASK IN PLACE, SKIN W/D/P. Physician History: 67 yo wf sent from clinic w productive cough x1 week. Pt has had coryza/fever/diarrhea/arthralgias/myalgias. She has some mid-scapular pain which is worse w deep breaths/coughing. Chest pain is denied, along N/V/melena/tacos tochezia. Pt smokes <1/2 ppd. Timing/Duration: other (1week) Cough Quality/Degree: productive cough Possible Cause: occasional episodes Modifying Factors: Improves With: other (Worse w deep breaths/coughing) Associated Symptoms: fever, chills, cough, muscle aches, nasal congestion, nasal drainage, shortness of breath, No dizziness, No earache, No facial pain, No lightheadedness, No sinus infection, No sore throat, No wheezing Allergies/Adverse Reactions: betamethasone [From Celestone] Allergy (Intermediate, Verified 06/01/22 16:03) itchy throat some tightness ketorolac [From Toradol] Allergy (Intermediate, Verified 06/01/22 16:03) Itching morphine Allergy (Intermediate, Verified 06/01/22 16:03) Itching Home Medications: Fluoxetine HCl [Prozac] 20 mg PO DAILY 04/17/12 [History] Hctz/Triamterene 25/37.5 mg [Maxzide 25MG] 25 mg PO DAILY 12/13/17 [History] Omeprazole [Prilosec] 20 mg PO BID 12/13/17 [History] lisinopriL [Lisinopril] 10 mg PO DAILY 12/13/17 [History] Cyclobenzaprine HCl [Flexeril] 5 mg PO DAILY PRN 07/05/21 [History] Oxycodone HCl/Acetaminophen [Oxycodone-Acetaminophn 7.5-325] 1 tab PO Q6H PRN 02/23/22 [History] Ropinirole HCl 1 mg PO HS 02/23/22 [History] Hx Tetanus, Diphtheria Vaccination/Date Given: Yes Hx Influenza Vaccination/Date Given: Yes Hx Pneumococcal Vaccination/Date Given: Yes Immunizations Up to Date: Yes Travel Risk - International Travel Have you traveled outside of the country in past 3 weeks: No - Coronavirus Screening Are you exhibiting any of the following symptoms?: Yes Symptoms: Cough: New Onset, Shortness of Breath Close contact with a COVID-19 positive Pt in past 14-21 Days: No - Vaccine Status Have you recieved a Covid-19 vaccination: Yes 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[employer]: [employer] - Vaccination Dates Date of 2cond Vaccination (if applicable): none - Review of Systems Constitutional: No Symptoms, Fever Eyes: No Symptoms Ears, Nose, & Throat: No Symptoms, Nose Congestion, Nose Discharge Respiratory: No Symptoms, Cough Cardiac: No Symptoms Abdominal/Gastrointestinal: No Symptoms, Diarrhea Genitourinary Symptoms: No Symptoms, No Dysuria, No Frequency, No Hematuria Musculoskeletal: No Symptoms, Arthralgias, Back Pain, Myalgias Skin: No Symptoms Neurological: No Symptoms Psychological: No Symptoms Endocrine: No Symptoms Hematologic/Lymphatic: No Symptoms Immunological/Allergic: No Symptoms - Past Medical History Pertinent Past Medical History: Yes Neurological History: No Pertinent History ENT History: No Pertinent History Cardiac History: Hypertension Respiratory History: COPD Endocrine Medical History: No Pertinent History Musculoskeletal History: Fibromyalgia, Osteoporosis GI Medical History: No Pertinent History Psycho-Social History: Anxiety Female Reproductive Disorders: Other Other Medical History: nya malformation, had brain surgery 1996, - Past Surgical History Past Surgical History: Yes Neuro Surgical History: Neurological Surgery Cardiac: No Pertinent History Respiratory: No Pertinent History Gastrointestinal: No Pertinent History Genitourinary: No Pertinent History Musculoskeletal: No Pertinent History Female Surgical History: Hysterectomy Other Surgical History: Archold Chiari Malformation - Social History Smoking Status: Current every day smoker How long have you smoked: 40 yrs Exposure to second hand smoke: Yes Drug Use: none Patient Lives Alone: No Significant Family History: no pertinent family hx - Nursing Vital Signs Nursing Vital Signs: Initial Vital Signs Temperature 97.2 F 06/01/22 15:53 Pulse Rate 98 H 06/01/22 15:53 Respiratory Rate 06/01/22 15:53 Blood Pressure 118/84 06/01/22 15:53 O2 Sat by Pulse Oximetry 96 06/01/22 15:53 Pain Scale Pain Intensity 4 Mildly tachyneic - Physical Exam General Appearance: no apparent distress Eye Exam: PERRL/EOMI, eyes nml inspection Ears, Nose, Throat Exam: normal ENT inspection, TMs normal, pharynx normal, moist mucous membranes Neck Exam: normal inspection, non-tender, supple, full range of motion, No me ningismus, No mass, No Brudzinski, No Kernig's, No carotid bruit Respiratory Exam: normal breath sounds, airway intact, No chest tenderness, No respiratory distress Cardiovascular Exam: regular rate/rhythm, normal heart sounds, normal peripheral pulses, capillary refill <2 sec, No murmur Gastrointestinal/Abdomen Exam: soft, normal bowel sounds, No tenderness Pelvic Exam: not done Rectal Exam: deferred Back Exam: normal inspection, normal range of motion, No CVA tenderness, No vertebral tenderness Extremity Exam: normal inspection, normal range of motion Neurologic Exam: alert, 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, 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 Jones) - CT Exams Chest CT Interpretation: Discussed w/radiologist (New mild RML/LLL atelectasis- scarring) Ordered Tests: Active Orders 24 hr Category Date Time Status EKG-ER Only STAT Care 06/01/22 16:04 Completed CHEST WITHOUT CONTRAST [CT] Stat Exams 06/01/22 16:42 Taken CBC W DIFF Stat Lab 06/01/22 16:20 Completed CMP Stat Lab 06/01/22 16:20 Completed NT PRO BNP Stat Lab 06/01/22 16:20 Completed PROTIME WITH INR Stat Lab 06/01/22 16:20 Completed PTT Stat Lab 06/01/22 16:20 Completed TROPONIN Q4H Lab 06/01/22 16:20 Completed Lab/Rad Data: Laboratory Result Diagrams 06/01/22 16:20 06/01/22 16:20 Laboratory Results 06/01/22 06/01/22 06/01/22 Range/Units 16:20 16:20 16:20 WBC (4.0-10.5) x10^3/uL RBC (4.1-5.4) x10^6/uL Hgb (12.0-16.0) g/dL Hct (35-47) % MCV (78-100) fL MCH (26-32) pg MCHC (32-36) g/dL RDW (11.5-14.0) % Plt Count (150-450) x10^3/uL MPV (7.5-11.0) fL Gran % (36.0-66.0) % Immature Gran % (Auto) (0.00-0.4) % Nucleat RBC Rel Count (0.00-0.1) % Eos # (Auto) (0-0.5) x10^3/uL Immature Gran # (Auto) (0.00-0.03) x10^3u/L Absolute Lymphs (auto) (1.0-4.6) x10^3/uL Absolute Monos (auto) (0.0-1.3) x10^3/uL Absolute Nucleated RBC (0.00-0.01) x10^3u/L Lymphocytes % (24.0-44.0) % Monocytes % (0.0-12.0) % Eosinophils % (0.00-5.0) % Basophils % (0.0-0.4) % Absolute Granulocytes (1.4-6.9) x10^3/uL Basophils # (0-0.4) x10^3/uL PT 10.3 (9.4-12.5) SECONDS INR 0.97 (0.8-3.0) APTT 27.9 (25.1-36.5) SECONDS Sodium (137-145) mmol/L Potassium (3.5-5.1) mmol/L Chloride (98-107) mmol/L Carbon Dioxide (22-30) mmol/L Anion Gap (5-15) MEQ/L BUN (7-17) mg/dL Creatinine (0.52-1.04) mg/dL Estimated GFR ML/MIN Glucose (74-106) mg/dL Calcium (8.4-10.2) mg/dL Total Bilirubin (0.2-1.3) mg/dL AST (14-36) U/L ALT (0-35) U/L Alkaline Phosphatase (38-126) U/L Troponin I < 0.012 (0.000-0.034) ng/mL NT-Pro-B Natriuret Pep (0-900) pg/mL Serum Total Protein (6.3-8.2) g/dL Albumin (3.5-5.0) g/dL Influenza Type A Ag NEGATIVE (NEGATIVE) Influenza Type B Ag NEGATIVE (NEGATIVE) RSV (PCR) NEGATIVE (Negative) SARS-CoV-2 (PCR) NEGATIVE (NEGATIVE) 06/01/22 06/01/22 Range/Units 16:20 16:20 WBC 11.6 H (4.0-10.5) x10^3/uL RBC 3.41 L (4.1-5.4) x10^6/uL Hgb 10.9 L (12.0-16.0) g/dL Hct 34.5 L (35-47) % MCV 101.2 H (78-100) fL MCH 32.0 (26-32) pg MCHC 31.6 L (32-36) g/dL RDW 12.7 (11.5-14.0) % Plt Count 249 (150-450) x10^3/uL MPV 10.3 (7.5-11.0) fL Gran % 79.3 H (36.0-66.0) % Immature Gran % (Auto) 0.5 H (0.00-0.4) % Nucleat RBC Rel Count 0.0 (0.00-0.1) % Eos # (Auto) 0.04 (0-0.5) x10^3/uL Immature Gran # (Auto) 0.06 H (0.00-0.03) x10^3u/L Absolute Lymphs (auto) 1.56 (1.0-4.6) x10^3/uL Absolute Monos (auto) 0.67 (0.0-1.3) x10^3/uL Absolute Nucleated RBC 0.00 (0.00-0.01) x10^3u/L Lymphocytes % 13.4 L (24.0-44.0) % Monocytes % 5.8 (0.0-12.0) % Eosinophils % 0.3 (0.00-5.0) % Basophils % 0.7 (0.0-0.4) % Absolute Granulocytes 9.23 H (1.4-6.9) x10^3/uL Basophils # 0.08 (0-0.4) x10^3/uL PT (9.4-12.5) SECONDS INR (0.8-3.0) APTT (25.1-36.5) SECONDS Sodium 137 (137-145) mmol/L Potassium 3.8 (3.5-5.1) mmol/L Chloride 102 (98-107) mmol/L Carbon Dioxide 25 (22-30) mmol/L Anion Gap 12.9 (5-15) MEQ/L BUN 22 H (7-17) mg/dL Creatinine 1.57 H (0.52-1.04) mg/dL Estimated GFR 35.1 ML/MIN Glucose 120 H (74-106) mg/dL Calcium 8.7 (8.4-10.2) mg/dL Total Bilirubin 0.40 (0.2-1.3) mg/dL AST 22 (14-36) U/L ALT 16 (0-35) U/L Alkaline Phosphatase 93 (38-126) U/L Troponin I (0.000-0.034) ng/mL NT-Pro-B Natriuret Pep 207 (0-900) pg/mL Serum Total Protein 7.4 (6.3-8.2) g/dL Albumin 4.1 (3.5-5.0) g/dL Influenza Type A Ag (NEGATIVE) Influenza Type B Ag (NEGATIVE) RSV (PCR) (Negative) SARS-CoV-2 (PCR) (NEGATIVE) - Progress Progress Note: 06/01/22 19:42 Pt developed a faint, diffuse expiratory wheeze on subsequent exams/No distress 06/01/22 19:43 Pt w good sats during entire stay w nonlabored respirations Counseled pt/family regarding: lab results, diagnosis, need for follow-up, rad results - Departure Departure Disposition: Home Clinical Impression: Bronchitis Condition: Stable Critical Care Time: No Referrals: NHUNG CASTANON [Primary Care Provider] - Follow up/PCP as directed Instructions: Acute Bronchitis, Adult (DC), Cough, Adult (DC) Additional Instructions: Quit smoking Doxycycline twice a day for 1 week Prednisone twice a day for 5 days Flovent 2 puffs twice a day Albuterol 2 puffs every 4-6 hours as needed Follow up with your family MD in 1-2 days Quit smoking Return to ER for increasing shortness of breath, temperature greater than 100.5, or chest pain Prescriptions: Prednisone 20 mg [Deltasone 20 mg] 20 mg PO BID 5 Days #10 tablet Doxycycline Monohydrate 100 mg PO BID 10 Days #14 cap Fluticasone Propionate [Flovent 110 Mcg MDI] 2 puffs IH BID #1 inhaler Albuterol Sulfate [Proventil Hfa] 2 puffs IH Q4-6HPRN PRN #1 PRN Reason: Shortness Of Breath/Wheezing
[2022-06-01 16:23] LABS: Absolute Neutrophil Ct (ANC) 9.23 x10^3/uL (1.4-6.9); Basophil (Absolute #) 0.08 x10^3/uL (0-0.4); Eosinophil % 0.3 % (0.00-5.0); Eosinophil (Absolute #) 0.04 x10^3/uL (0-0.5); Hematocrit 34.5 % (35-47); Hemoglobin 10.9 g/dL (12.0-16.0); Lymphocyte (Absolute #) 1.56 x10^3/uL (1.0-4.6); Lymphocytes % 13.4 % (24.0-44.0); Mean Cell Volume 101.2 fL (78-100); Mean Corpuscular Hgb Concent. 31.6 g/dL (32-36); Mean Platelet Volume 10.3 fL (7.5-11.0); Monocyte (Absolute #) 0.67 x10^3/uL (0.0-1.3); Monocytes % 5.8 % (0.0-12.0); Neutrophil % 79.3 % (36.0-66.0); Platelet Count 249 x10^3/uL (150-450); Red Blood Count 3.41 x10^6/uL (4.1-5.4); Red Cell Distribution Width 12.7 % (11.5-14.0); White Blood Count 11.6 x10^3/uL (4.0-10.5)
[2022-06-01 16:42] LABS: INR 0.97 (0.8-3.0); PROTIME 10.3 SECONDS (9.4-12.5); PTT 27.9 SECONDS (25.1-36.5)
[2022-06-01 16:48] LABS: ALBUMIN 4.1 g/dL (3.5-5.0); ANION GAP 12.9 MEQ/L (5-15); BILIRUBIN,TOTAL 0.4 mg/dL (0.2-1.3); Calcium 8.7 mg/dL (8.4-10.2); Creatinine 1 1.57 mg/dL (0.52-1.04); EST GLOMERULAR FILTRATION RATE 35.1 ML/MIN; Potassium 3.8 mmol/L (3.5-5.1); Total Protein 7.4 g/dL (6.3-8.2)
[2022-06-01 17:00] LABS: INFLUENZA A NEGATIVE (NEGATIVE); INFLUENZA B NEGATIVE (NEGATIVE); RESPIRATORY SYNCTIAL VIRUS NEGATIVE (Negative); SARS-CoV-2 Xpert Express NEGATIVE (NEGATIVE)
[2022-06-01 17:31] VITALS: BP 110/73
[2022-06-01 18:22] VITALS: PULSE 90
[2022-06-01 18:48] VITALS: O2SAT 96
--- NOTE | 2022-06-02 08:32 | XRAY ---
Indication: Cough and congestion 1 week. Pain between shoulder blades. Multiple contiguous axial images obtained through the chest without contrast. Comparison: September 26, 2018 Lungs demonstrates new mild right middle lobe and minimal bibasilar subsegmental atelectasis/scarring. No suspicious pulmonary mass, infiltrate, effusion, or pneumothorax. Heart is not enlarged. Aorta is normal in course and caliber. No pathologic mediastinal lymphadenopathy. Bony thorax intact again with mild degenerative changes throughout the spine and mild double curvature scoliosis. Limited upper abdomen including adrenal glands are unremarkable. Impression: 1. New bilateral subsegmental atelectasis/scarring. No acute cardiopulmonary abnormalities. 2. Again degenerative spondylosis and scoliosis.
== END 2022-06-01 19:00 | disposition home or self-care (01) ==
LOC: ED 15:30
DX: J40 Bronchitis, not specified as acute or chronic (principal); R05.1 Acute cough; R09.81 Nasal congestion; R50.9 Fever, unspecified; R19.7 Diarrhea, unspecified; M79.10 Myalgia, unspecified site; I10 Essential (primary) hypertension; J44.9 Chronic obstructive pulmonary disease, unspecified; Z72.0 Tobacco use; Z79.52 Long term (current) use of systemic steroids; Z79.899 Other long term (current) drug therapy
CPT/HCPCS: 0241U; 36415; 71045; 71250; 80053; 83880; 84484; 85025; 85610; 85730; 93005; 99283

== ENCOUNTER 2023-09-23 12:06 | Emergency (ER) | payer MEDICARE ==
[2023-09-23 12:19] VITALS: TEMP 98.4
[2023-09-23] MEDS ORDERED: MORPHINE SULFATE 4 MG INJ IV ONE (12:19)
[2023-09-23] MEDS ORDERED: BABY ASPIRIN 81 MG CHEW PO ONE (12:19)
[2023-09-23] MEDS ORDERED: Zofran 4 MG/2 ML VIAL IV ONE (12:19)
[2023-09-23] MEDS ORDERED: Zofran 4 MG/2 ML VIAL ONE (12:25)
[2023-09-23] MEDS ORDERED: BABY ASPIRIN 81 MG CHEW ONE (12:26)
[2023-09-23] MEDS ORDERED: MORPHINE SULFATE 4 MG INJ ONE (12:26)
--- NOTE | 2023-09-23 12:54 | ERPHSYRPT ---
- History of Present Illness Time Seen by Provider: 09/23/23 12:07 Historian: patient Exam Limitations: no limitations Patient Subjective Stated Complaint: Chest pain Triage Nursing Assessment: Patient ambulated back to ED and transferred self to ED. Patient A+O X 3. Patient's skin pink, warm and dry. Patient complains of pain that startes underneath left arm and goes into left shoulder/upper back area and into left side of chest since Monday. Patient states the pain has gotten worse today 03/20. Patient denies N/V or diarhea. Physician History: 68 years old female with history of hypertension and tobacco abuse presented in the ER with chief complaint of left-sided chest pain. Patient reports moderate intensity sharp pain going from anterior chest to the back to the shoulder and left upper extremity, aggravated with movements and no significant relieving factors despite taking Percocet. Patient denies any difficulty breathing or palpitations. She has chronic smoker's cough which is not any worse than usual. No lower extremity swellings. No history of coronary artery disease or CHF. Denies any chest rash, fall or trauma, pushing or pulling heavy objects. Patient reports she had a RSV/atypical pneumonia and has recently finished course of antibiotics and steroids. Aspirin Treatment Today: no aspirin today Allergies/Adverse Reactions: betamethasone [From Celestone] Allergy (Intermediate, Verified 09/23/23 12:11) itchy throat some tightness ketorolac [From Toradol] Allergy (Intermediate, Verified 09/23/23 12:11) Itching morphine Allergy (Intermediate, Verified 09/23/23 12:11) Itching Home Medications: Fluoxetine HCl [Prozac] 20 mg PO DAILY 04/17/12 [History] Hctz/Triamterene 25/37.5 mg [Maxzide 25MG] 25 mg PO DAILY 12/13/17 [History] Omeprazole [Prilosec] 20 mg PO BID 12/13/17 [History] lisinopriL [Lisinopril] 10 mg PO DAILY 12/13/17 [History] Cyclobenzaprine HCl [Flexeril] 5 mg PO DAILY PRN 07/05/21 [History] Oxycodone HCl/Acetaminophen [Oxycodone-Acetaminophn 7.5-325] 1 tab PO Q6H PRN 02/23/22 [History] Ropinirole HCl 1 mg PO HS 02/23/22 [History] Hx Tetanus, Diphtheria Vaccination/Date Given: Yes Hx Influenza Vaccination/Date Given: Yes Hx Pneumococcal Vaccination/Date Given: Yes Immunizations Up to Date: Yes Travel Risk - International Travel Have you traveled outside of the country in past 3 weeks: No - Coronavirus Screening Are you exhibiting any of the following symptoms?: No Close contact with a COVID-19 positive Pt in past 14-21 Days: No - Vaccine Status Have you recieved a Covid-19 vaccination: Yes 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@ [employer] - Vaccination Dates Date of 2cond Vaccination (if applicable): none - Review of Systems Constitutional: No Symptoms Eyes: No Symptoms Ears, Nose, & Throat: No Symptoms Respiratory: Cough Cardiac: Chest Pain Abdominal/Gastrointestinal: No Symptoms Genitourinary Symptoms: No Symptoms Musculoskeletal: Arthralgias Skin: No Symptoms Neurological: No Symptoms Hematologic/Lymphatic: No Symptoms Immunological/Allergic: No Symptoms - Past Medical History Pertinent Past Medical History: Yes Neurological History: No Pertinent History ENT History: No Pertinent History Cardiac History: Hypertension Respiratory History: COPD Endocrine Medical History: No Pertinent History Musculoskeletal History: Fibromyalgia, Osteoporosis GI Medical History: No Pertinent History Psycho-Social History: Anxiety Female Reproductive Disorders: Other Other Medical History: nya malformation, had brain surgery 1996, - Past Surgical History Past Surgical History: Yes Neuro Surgical History: Neurological Surgery Cardiac: No Pertinent History Respiratory: No Pertinent History Gastrointestinal: No Pertinent History Genitourinary: No Pertinent History Musculoskeletal: No Pertinent History Female Surgical History: Hysterectomy Other Surgical History: Archold Chiari Malformation - Social History Smoking Status: Current every day smoker How long have you smoked: 40 yrs Exposure to second hand smoke: Yes Drug Use: none Patient Lives Alone: No Significant Family History: no pertinent family hx - Nursing Vital Signs Nursing Vital Signs: Initial Vital Signs Pulse Rate 102 H 09/23/23 12:07 Respiratory Rate 14 09/23/23 12:07 Blood Pressure 149/100 09/23/23 12:07 O2 Sat by Pulse Oximetry 97 09/23/23 12:07 Pain Scale Pain Intensity 3 - Physical Exam General Appearance: no apparent distress, alert Eye Exam: PERRL/EOMI Ears, Nose, Throat Exam: normal ENT inspection Neck Exam: normal inspection, supple, full range of motion Respiratory Exam: normal breath sounds, chest tenderness (Heart tenderness left anterior chest, upper breast and posterior chest wall with no rash cellulitis/swelling.), lungs clear Cardiovascular Exam: regular rate/rhythm, normal heart sounds Gastrointestinal/Abdomen Exam: soft, normal bowel sounds, No tenderness Extremity Exam: normal inspection, normal range of motion Neurologic Exam: alert, 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, cooperative Skin Exam: normal color SpO2 Interpretation: normal SpO2: 98 O2 Delivery: Room Air - Course EKG Interpreted by Me: RATE (98), Sinus Rhythm, NORMAL AXIS, NORMAL INTERVALS, NORMAL QRS Ordered Tests: Active Orders 24 hr Category Date Time Status Elementary Instructional Coach STAT Care 09/23/23 12:19 Completed EKG-ER Only STAT Care 09/23/23 12:19 Completed IV Insertion STAT Care 09/23/23 12:19 Completed Pulse Oximetry (ED) STAT Care 09/23/23 12:19 Completed Re-Check Vital Signs STAT Care 09/23/23 12:19 Completed CHEST WITH CONTRAST [CT] Stat Exams 09/23/23 15:46 Completed CHEST WITHOUT CONTRAST [CT] Stat Exams 09/23/23 12:48 Completed CBC W DIFF Stat Lab 09/23/23 12:45 Completed CK-Creatinine Phosphokinase Stat Lab 09/23/23 12:45 Completed CMP Stat Lab 09/23/23 12:45 Completed D-DIMER QUANTITATIVE Stat Lab 09/23/23 Completed NT PRO BNPII Stat Lab 09/23/23 12:45 Completed TROPONIN Q4H Lab 09/23/23 12:45 Completed TROPONIN Q4H Lab 09/23/23 16:55 Completed Medication Summary Discontinued Medications Generic Name Dose Route Start Last Admin Trade Name Freq PRN Reason Stop Dose Admin Aspirin 324 mg 09/23/23 12:19 09/23/23 12:28 Aspirin 81 Mg Tab.Chew PO 09/23/23 12:20 324 mg STAT ONE Administration Aspirin Confirm 09/23/23 12:26 Aspirin 81 Mg Tab.Chew Administered 09/23/23 12:27 Dose 324 mg .ROUTE .STK-MED ONE Sodium Chloride 1,000 mls @ 500 mls/hr 09/23/23 16:15 09/23/23 16:22 Sodium Chloride 0.9% 1000 Ml IV 10/23/23 16:14 500 mls/hr .Q2H NANDO Administration Sodium Chloride Confirm 09/23/23 16:20 Sodium Chloride 0.9% 1000 Ml Administered 09/23/23 16:21 Dose 1,000 mls @ ud .ROUTE .STK-MED ONE Morphine Sulfate 4 mg 09/23/23 12:19 09/23/23 12:29 Morphine Sulfate 4 Mg/Ml Injection IV 09/23/23 12:20 4 mg STAT ONE Administration Morphine Sulfate Confirm 09/23/23 12:26 Morphine Sulfate 4 Mg/Ml Injection Administered 09/23/23 12:27 Dose 4 mg .ROUTE .STK-MED ONE Ondansetron HCl 4 mg 09/23/23 12:19 09/23/23 12:28 Ondansetron Hcl 4 Mg/2 Ml Vial IV 09/23/23 12:20 4 mg STAT ONE Administration Ondansetron HCl Confirm 09/23/23 12:25 Ondansetron Hcl 4 Mg/2 Ml Vial Administered 09/23/23 12:26 Dose 4 mg .ROUTE .STK-MED ONE Lab/Rad Data: Laboratory Result Diagrams 09/23/23 12:45 09/23/23 12:45 Laboratory Results 09/23/23 09/23/23 09/23/23 Range/Units Unknown 16:55 12:45 WBC (4.0-10.5) x10^3/uL RBC (4.1-5.4) x10^6/uL Hgb (12.0-16.0) g/dL Hct (35-47) % MCV (78-100) fL MCH (26-32) pg MCHC (32-36) g/dL RDW (11.5-14.0) % Plt Count (150-450) x10^3/uL MPV (7.5-11.0) fL Gran % (36.0-66.0) % Immature Gran % (Auto) (0.00-0.4) % Nucleat RBC Rel Count (0.00-0.1) % Eos # (Auto) (0-0.5) x10^3/uL Immature Gran # (Auto) (0.00-0.03) x10^3u/L Absolute Lymphs (auto) (1.0-4.6) x10^3/uL Absolute Monos (auto) (0.0-1.3) x10^3/uL Absolute Nucleated RBC (0.00-0.01) x10^3u/L Lymphocytes % (24.0-44.0) % Monocytes % (0.0-12.0) % Eosinophils % (0.00-5.0) % Basophils % (0.0-0.4) % Absolute Granulocytes (1.4-6.9) x10^3/uL Basophils # (0-0.4) x10^3/uL D-Dimer 1.18 H* (0.0-0.50) mg/L Sodium (137-145) mmol/L Potassium (3.5-5.1) mmol/L Chloride (98-107) mmol/L Carbon Dioxide (22-30) mmol/L Anion Gap (5-15) MEQ/L BUN (7-17) mg/dL Creatinine (0.52-1.04) mg/dL Estimated GFR ML/MIN Glucose (74-106) mg/dL Calcium (8.4-10.2) mg/dL Total Bilirubin (0.2-1.3) mg/dL AST (14-36) U/L ALT (0-35) U/L Alkaline Phosphatase (38-126) U/L Creatine Kinase (30-135) U/L Troponin I < 0.012 (0.000-0.034) ng/mL NT-Pro-B Natriuret Pep 228 (<300) pg/mL Serum Total Protein (6.3-8.2) g/dL Albumin (3.5-5.0) g/dL 09/23/23 09/23/23 09/23/23 Range/Units 12:45 12:45 12:45 WBC 8.9 (4.0-10.5) x10^3/uL RBC 4.24 (4.1-5.4) x10^6/uL Hgb 13.5 (12.0-16.0) g/dL Hct 41.8 (35-47) % MCV 98.6 (78-100) fL MCH 31.8 (26-32) pg MCHC 32.3 (32-36) g/dL RDW 13.1 (11.5-14.0) % Plt Count 303 (150-450) x10^3/uL MPV 9.9 (7.5-11.0) fL Gran % 65.8 (36.0-66.0) % Immature Gran % (Auto) 0.4 (0.00-0.4) % Nucleat RBC Rel Count 0.0 (0.00-0.1) % Eos # (Auto) 0.13 (0-0.5) x10^3/uL Immature Gran # (Auto) 0.04 H (0.00-0.03) x10^3u/L Absolute Lymphs (auto) 2.14 (1.0-4.6) x10^3/uL Absolute Monos (auto) 0.63 (0.0-1.3) x10^3/uL Absolute Nucleated RBC 0.00 (0.00-0.01) x10^3u/L Lymphocytes % 24.0 (24.0-44.0) % Monocytes % 7.1 (0.0-12.0) % Eosinophils % 1.5 (0.00-5.0) % Basophils % 1.2 (0.0-0.4) % Absolute Granulocytes 5.88 (1.4-6.9) x10^3/uL Basophils # 0.11 (0-0.4) x10^3/uL D-Dimer (0.0-0.50) mg/L Sodium 137 (137-145) mmol/L Potassium 5.1 (3.5-5.1) mmol/L Chloride 102 (98-107) mmol/L Carbon Dioxide 30 (22-30) mmol/L Anion Gap 10.7 (5-15) MEQ/L BUN 12 (7-17) mg/dL Creatinine 1.05 H (0.52-1.04) mg/dL Estimated GFR 58.6 ML/MIN Glucose 93 (74-106) mg/dL Calcium 9.3 (8.4-10.2) mg/dL Total Bilirubin 0.50 (0.2-1.3) mg/dL AST 19 (14-36) U/L ALT 14 (0-35) U/L Alkaline Phosphatase 86 (38-126) U/L Creatine Kinase 45 (30-135) U/L Troponin I < 0.012 (0.000-0.034) ng/mL NT-Pro-B Natriuret Pep (<300) pg/mL Serum Total Protein 7.5 (6.3-8.2) g/dL Albumin 4.3 (3.5-5.0) g/dL - Progress Progress: improved, re-examined Air Movement: good Progress Note: 09/23/23 17:40 68 years old is evaluated for left-sided chest pain reproducible with palpation movements and some radiation to the left shoulder. Patient has a longstanding history of smoking. She is given somatic treatment for pain. She is not in any distress. On reevaluation her pain is better. Workup showed normal white count and negative troponins x 2 and EKG is normal sinus rhythm with no acute ST elevations. Patient has a history of CKD but creatinine is normal, given fluids and obtained CTA chest which is negative for pulmonary embolism but did showed small pleural effusion on the left with some atelectasis bilaterally. 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 I believe patient's pain is more of a musculoskeletal with some element of pleurisy as well as she recently had viral pneumonia. Patient has a long history of tobacco use/COPD and I would give her a course of Z-Ken and steroid and recommended continuing with her inhaler to go home. I do not think patient needs further evaluation in the ER and can be discharged with outpatient follow-up. Discussed signs symptoms of worsening needing return to ER which she seems understanding. I have shared the results of workup with patient and her and daughter in detail and need for outpatient follow-up which they seem understanding. Stable for discharge. Antibiotics given: Yes Counseled pt/family regarding: lab results, diagnosis, rad results Medical Desision Making - Independent Historian Additional History obtained from: Spouse, Child - Diagnostic Testing Diagnostic test were ordered, analyzed, and reviewed by me: Yes Radiological Interpretation: Reviewed by me - Risk of complications The pt has a mod risk of morbidity or mortality based on: Need for prescription drug management - Departure Departure Disposition: Home Clinical Impression: Chest wall pain, Pleural effusion Condition: Stable Critical Care Time: No Referrals: NHUNG CASTANON [Primary Care Provider] - Follow up with PCP 2 days Instructions: Angina (DC), Chest Pain (DC) Additional Instructions: Take pain medications which you have at home as recommended. Follow-up with primary care for reevaluation. Do not smoke. Do deep breathing exercises. You need follow-up appointment for reevaluation of his small fibroadenoma in the left breast and also a thyroid nodule and a nodule in the lung as well. Please talk to your primary care doctor for outpatient imaging studies schedule. Return to ER for worsening chest pain or if having difficulty breathing, fever chills etc. Prescriptions: Prednisone 20 mg [Deltasone 20 mg] 60 mg PO DAILY 5 Days #15 tablet Azithromycin 250 mg [Zithromax 250 MG TABLET] 250 mg PO ZPACK #6 tablet
[2023-09-23 13:00] LABS: Absolute Neutrophil Ct (ANC) 5.88 x10^3/uL (1.4-6.9); BASOPHIL % 1.2 % (0.0-0.4); Basophil (Absolute #) 0.11 x10^3/uL (0-0.4); Eosinophil % 1.5 % (0.00-5.0); Eosinophil (Absolute #) 0.13 x10^3/uL (0-0.5); Hematocrit 41.8 % (35-47); Hemoglobin 13.5 g/dL (12.0-16.0); IMMATURE GRAN # 0.04 x10^3u/L (0.00-0.03); IMMATURE GRAN % 0.4 % (0.00-0.4); Lymphocyte (Absolute #) 2.14 x10^3/uL (1.0-4.6); Mean Cell Volume 98.6 fL (78-100); Mean Corpuscular Hemoglobin 31.8 pg (26-32); Mean Corpuscular Hgb Concent. 32.3 g/dL (32-36); Mean Platelet Volume 9.9 fL (7.5-11.0); Monocyte (Absolute #) 0.63 x10^3/uL (0.0-1.3); Monocytes % 7.1 % (0.0-12.0); Neutrophil % 65.8 % (36.0-66.0); Platelet Count 303 x10^3/uL (150-450); Red Blood Count 4.24 x10^6/uL (4.1-5.4); Red Cell Distribution Width 13.1 % (11.5-14.0); White Blood Count 8.9 x10^3/uL (4.0-10.5)
[2023-09-23 13:08] LABS: ALBUMIN 4.3 g/dL (3.5-5.0); ANION GAP 10.7 MEQ/L (5-15); BILIRUBIN,TOTAL 0.5 mg/dL (0.2-1.3); Calcium 9.3 mg/dL (8.4-10.2); Creatinine 1 1.05 mg/dL (0.52-1.04); EST GLOMERULAR FILTRATION RATE 58.6 ML/MIN; Potassium 5.1 mmol/L (3.5-5.1); Total Protein 7.5 g/dL (6.3-8.2)
--- NOTE | 2023-09-23 14:15 | XRAY ---
CLINICAL HISTORY:left side pain COMPARISON:None. TECHNIQUE:Contiguous axial CT images of the chest were acquired without the administration of intravenous contrast. Coronal and sagittal reconstructions were obtained. FINDINGS: Minimal left basal pleural effusion with adjacent minimal atelectatic changes. Bilateral lower lung lobes thick atelectatic plates. No definite consolidations or contusions. Minimal bilateral apical reticulations, likely sequelae of old infection. No free or encysted right pleural effusion. Heart size is normal, and there is no pericardial effusion. No pathologically enlarged mediastinal, hilar, or axillary lymph node identified. Right thyroid lobe coarse calcific focus. There is no definite mass lesion in the chest wall. No chest wall fractures. Thoracolumbar scoliosis with convexity towards the left side with a [place] angle of 26. Spondylotic changes in the thoracic spine. IMPRESSION: 1. Minimal left basal pleural effusion with adjacent minimal atelectatic changes 2. No evidence of consolidation or definite pulmonary infection. 3. Right thyroid lobe coarse calcific focus, would recommend sonography for further evaluation. Electronically Signed by: Dom Chapman MD. (09/23/2023 14:11:03 EST)
[2023-09-23] MEDS ORDERED: Sodium Chloride 0.9% 1000 ML 1,000 ML IV SCH (16:15)
[2023-09-23] MEDS ORDERED: Sodium Chloride 0.9% 1000 ML 1,000 ML ONE (16:20)
--- NOTE | 2023-09-23 17:08 | XRAY ---
CLINICAL HISTORY:cp, PE? COMPARISON:09/23/2023 TECHNIQUE:Contiguous axial CT images of the chest were acquired without and with the administration of 100 c.c of intravenous isovue (370mg/100ml). Coronal and sagittal reconstructions were obtained. FINDINGS: Bilateral pulmonary arteries are normally opacified up to their second-order branches, with no evidence of any filling defect. The aorta is showing diffuse intimal thickening with scattered sclerotic foci, signifying atherosclerotic changes. Minimal left basal pleural effusion with adjacent minimal atelectatic changes. Bilateral lower lung lobes have thick atelectatic plates with minimal ground-glass attenuation. A tiny fissural nodule of 6mm is seen in the anterior segment of the left upper lobe (S;3, Img;35). A few tiny scattered air cysts are seen. No definite consolidations or contusions. Heart size is normal, and there is no pericardial effusion. No pathologically enlarged mediastinal, hilar, or axillary lymph node was identified. Right thyroid lobe shows coarse calcific focus. Left breast calcific foci and another area of popcorn calcifications, likely fibroadenomas, requiring US/Mammography correlation. There is no definite mass lesion in the chest wall. Thoracolumbar scoliosis with convexity towards the left side. Spondylodegenerative changes in the thoracic spine. IMPRESSION: 1. Negative for pulmonary embolism. 2. Atherosclerotic changes in the aorta with scattered calcific plaques. 3. Bilateral basal atelectatic changes with minimal left pleural effusions. 4. A small 6mm fissural nodule in the anterior segment of the left upper lobe. (Follow-up with CT at 6-12months is recommended according to [place] guidelines). 5. Right thyroid coarse calcific focus and left breast likely calcific fibroadenomas, requiring US/mammography correlation. 6. The rest of the findings as detailed above. Electronically Signed by: Dom Chapman MD. (09/23/2023 17:05:08 EST)
[2023-09-23 17:31] VITALS: BP 126/86; PULSE 78; RESP 18; O2SAT 98
== END 2023-09-23 17:49 | disposition home or self-care (01) ==
LOC: ED 12:06
DX: R07.89 Other chest pain (principal); J90 Pleural effusion, not elsewhere classified; I10 Essential (primary) hypertension; Z79.52 Long term (current) use of systemic steroids; Z79.899 Other long term (current) drug therapy; Z72.0 Tobacco use
CPT/HCPCS: 36000; 36415; 71250; 71260; 80053; 82550; 83880; 84484; 85025; 85379; 93005; 93041; 94760; 96374; 96375; 99284; J2270; J2405; A9270-GY

== ENCOUNTER 2024-05-15 14:41 | Day surgery (SDC) | payer MEDICARE ==
[2012-07-08 01:00] VITALS: BP 106/70
[2024-05-15] MEDS ORDERED: Depo-Medrol 40 MG/ML IM ONE (14:42)
[2024-05-15] MEDS ORDERED: LIDOCAINE HCL 1% 50 MG/5 ML VL PF IJ ONE (14:42)
[2024-05-15] MEDS ORDERED: BUPIVACAINE 0.5% VIAL IJ ONE (14:42)
--- NOTE | 2024-05-15 17:42 | XRAY ---
Indication: Left knee injection. Intraoperative fluoroscopy provided for 8 seconds. Single digital spot image submitted for interpretation demonstrates needle tip projecting over the left femur intercondylar notch. Small amount of contrast injected for needle tip placement. Correlate with intraoperative findings/report.
--- NOTE | 2024-05-15 17:42 | XRAY ---
8 seconds of fluoroscopy was used in surgery for a left intra-articular knee injection.
== END 2024-05-15 16:28 | disposition home or self-care (01) ==
LOC: SDC-PAIN 14:41
PROVIDERS: ATTEND Psychiatry & Neurology Pain Medicine
DX: M17.12 Unilateral primary osteoarthritis, left knee (principal); M70.52 Other bursitis of knee, left knee
CPT/HCPCS: 20610; 73560; 77002; J2001; Q9966

== ENCOUNTER 2024-06-19 18:43 | Emergency (ER) | payer MEDICARE ==
[2024-06-19 19:25] VITALS: RESP 18; TEMP 98.5; O2SAT 98
--- NOTE | 2024-06-19 19:35 | ERPHSYRPT ---
- History of Present Illness Time Seen by Provider: 06/19/24 19:30 Source: patient Exam Limitations: no limitations Patient Subjective Stated Complaint: pt states she is moving and was carrying boxes and tripped and fell. Triage Nursing Assessment: pt ambulatory to bed from wheelchair with stand by assist, pt alert and oriented x3, pt c/o L knee pain/injury, pt has skin tear on L leg below the knee, skin tears noted to R upper arm and R wrist, pt rating pain 5/10, bleeding controlled, tetanus utd Physician History: 69-year-old female presents to our ED with pain to her left leg secondary to a fall. Patient reports she is in the process of moving from her trailer home to a regular house. Patient was carrying a heavy box through a doorway and tripped. Patient reports having existing left knee meniscal tear. However patient reports her pain is actually the upper third of her lower leg and not the knee per se. Patient is able to flex and extend her left knee throughout its full range of motion without any difficulty or pain. Patient has a skin tear at the location of the anterior surface of the left lower leg. There is also a skin tear on her right upper arm and wrist. No laceration repair indicated. No other injuries reported. No BHT or LOC. No neck pain. Cervical spine cleared clinically. Patient declined pain medication. Patient states she took pain medication prior to arrival. Significant other at bedside. They voiced no other complaints or concerns at this time. Tetanus up-to-date Portions of this note were created with voice recognition technology. There may be grammatical, spelling, punctuation or sound alike errors Timing/Duration: today Severity: mild Associated Symptoms: denies symptoms Allergies/Adverse Reactions: betamethasone [From Celestone] Allergy (Intermediate, Verified 06/19/24 19:19) itchy throat some tightness ketorolac [From Toradol] Allergy (Intermediate, Verified 06/19/24 19:19) Itching morphine Allergy (Intermediate, Verified 06/19/24 19:19) Itching Home Medications: Cyclobenzaprine HCl [Flexeril] 5 mg PO DAILY PRN 07/05/21 [History] Oxycodone HCl/Acetaminophen [Percocet 7.5-325 mg Tablet] 1 tab PO Q6-8HPRN PRN 06/19/24 [History] Pregabalin [Lyrica] 25 mg PO BID 06/19/24 [History] Hx Tetanus, Diphtheria Vaccination/Date Given: Yes Hx Influenza Vaccination/Date Given: No Hx Pneumococcal Vaccination/Date Given: No Immunizations Up to Date: No Travel Risk - International Travel Have you traveled outside of the country in past 3 weeks: No - Emerging Infectious Disease Are you exhibiting symptoms associated with any current EIDs: No - Review of Systems Constitutional: No Symptoms, No Fever, No Chills Eyes: No Symptoms Ears, Nose, & Throat: No Symptoms Respiratory: No Symptoms, No Cough, No Dyspnea Cardiac: No Symptoms, No Chest Pain, No Edema, No Syncope Abdominal/Gastrointestinal: No Symptoms, No Abdominal Pain, No Nausea, No V omiting, No Diarrhea Genitourinary Symptoms: No Symptoms, No Dysuria Musculoskeletal: No Symptoms, No Back Pain, No Neck Pain Skin: No Symptoms, No Rash Neurological: No Symptoms, No Dizziness, No Focal Weakness, No Sensory Changes Psychological: No Symptoms Endocrine: No Symptoms Hematologic/Lymphatic: No Symptoms Immunological/Allergic: No Symptoms All Other Systems: Reviewed and Negative - Past Medical History Pertinent Past Medical History: Yes Neurological History: No Pertinent History ENT History: No Pertinent History Cardiac History: Hypertension Respiratory History: COPD, Pneumonia Endocrine Medical History: No Pertinent History Musculoskeletal History: Fibromyalgia, Osteoporosis GI Medical History: No Pertinent History History: No Pertinent History Psycho-Social History: Anxiety Female Reproductive Disorders: Other Other Medical History: nya malformation, had brain surgery 1996, - Past Surgical History Past Surgical History: Yes Neuro Surgical History: Neurological Surgery Cardiac: No Pertinent History Respiratory: No Pertinent History Gastrointestinal: No Pertinent History Genitourinary: No Pertinent History Musculoskeletal: No Pertinent History Female Surgical History: Hysterectomy Other Surgical History: Archold Chiari Malformation Significant Family History: no pertinent family hx - Social History Smoking Status: Current every day smoker How long have you smoked: 40 yrs Exposure to second hand smoke: Yes Drug Use: none Patient Lives Alone: No - Social Determinants of Health Will the patient participate in the screening: Declined to provide - Nursing Vital Signs Nursing Vital Signs: Initial Vital Signs Temperature 98.5 F 06/19/24 19:19 Pulse Rate 101 H 06/19/24 19:19 Respiratory Rate 18 06/19/24 19:19 Blood Pressure 159/102 06/19/24 19:19 O2 Sat by Pulse Oximetry 98 06/19/24 19:19 Pain Scale Pain Intensity 5 - Physical Exam General Appearance: no apparent distress, alert Eye Exam: PERRL/EOMI, eyes nml inspection Ears, Nose, Throat Exam: normal ENT inspection, moist mucous membranes Neck Exam: normal inspection, full range of motion Respiratory Exam: normal breath sounds, lungs clear, No respiratory distress Cardiovascular Exam: regular rate/rhythm, normal heart sounds, normal peripheral pulses Gastrointestinal/Abdomen Exam: soft, normal bowel sounds, No tenderness, No mass Back Exam: normal inspection, normal range of motion, No CVA tenderness, No vertebral tenderness Extremity Exam: normal inspection, normal range of motion, pelvis stable Neurologic Exam: alert, 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, cooperative, normal mood/affect, sensation nml, No motor deficits Skin Exam: normal color, warm, dry, other (Skin tear left anterior leg proximal third is 4 cm. Skin tear at right upper arm is 7 cm with a small skin tear at the right medial wrist along the ulnar measuring 3 cm all skin tears are very superficial no repair indicated), No rash Lymphatic Exam: No adenopathy SpO2 Interpretation: normal SpO2: 98 O2 Delivery: Room Air - Course Nursing assessment & vital signs reviewed: Yes Ordered Tests: Active Orders 24 hr Category Date Time Status LOWER LEG Stat Exams 06/19/24 19:27 Taken - Progress Progress: improved Progress Note: Sick 9-year-old female presents to our ED for pain to her left leg after a fall. Physical exam reveals a skin tear of her left leg as well as right arm and forearm area. No suture repair indicated. X-ray of the involved left leg is negative for fracture dislocation no acute pathology observed. Patient declined pain medication. Tetanus up-to-date. Patient states he is ready for discharge. She voices no other complaints or concerns at this time. Patient agrees to follow-up with her primary care doctor within 48 hours for reevaluation. Portions of this note were created with voice recognition technology. There may be grammatical, spelling, punctuation or sound alike errors Complexity of problem addressed is moderate acute complicated. No critical care time. Complex of data reviewed and analyzed is moderate. Test ordered chest reviewed results analyzed and correlated clinically with history and physical exam. Dr. Blevins independently reviewed the x-ray of the left leg. Risk of complication and or risk of morbidity/mortality of patient management is low. Vital stable. Time spent to discharge patient approximately 18 minutes. Plan of care established for shared decision making. No social determinants of health present to impede follow-up. Portions of this note were created with voice recognition technology. There may be grammatical, spelling, punctuation or sound alike errors 06/19/24 19:54 Counseled pt/family regarding: diagnosis, need for follow-up, rad results - Departure Departure Disposition: Home Clinical Impression: Fall, Skin tear Condition: Stable Critical Care Time: No Referrals: NHUNG CASTANON [Primary Care Provider] - Follow up/PCP as directed Additional Instructions: Discharge/Care Plan VANNESA DOYLE was seen on 06/19/24 in the Emergency Room. The patient was counseled regarding Diagnosis,Lab results, Imaging studies, need for follow up and when to return to the Emergency Room. Prescriptions given: Discharge Note I have spoken with the patient and/or caregivers. I have explained the patient's condition, diagnosis and treatment plan based on the information available to me at this time. I have answered the patient's and/or caregiver's questions and addressed any concerns. The patient and/or caregivers have as good understanding of the patient's diagnosis, condition and treatment plan as can be expected at this point. The vital signs have been stable. The patient's condition is stable and appropriate for discharge from the emergency department. The patient will pursue further outpatient evaluation with the primary care physician or other designated or consulting physician as outlined in the discharge instructions. The patient and/or caregivers are agreeable to this plan of care and follow-up instructions have been explained in detail. The patient and/or caregivers have received these instruction. The patient/and or caregivers are aware that any significant change in condition or worsening of symptoms should prompt an immediate return to this or the closest emergency department or call 911.
[2024-06-19 20:06] VITALS: BP 152/95; PULSE 98
--- NOTE | 2024-06-20 08:51 | XRAY ---
Indication: Pain following fall. Comparison: None 2 view left lower leg obtained. No bony, articular, or soft tissue abnormalities.
== END 2024-06-19 20:15 | disposition home or self-care (01) ==
LOC: ED 18:43
DX: S81.812A Laceration without foreign body, left lower leg, initial encounter (principal); S41.111A Laceration without foreign body of right upper arm, initial encounter; S61.511A Laceration without foreign body of right wrist, initial encounter; W01.0XXA Fall on same level from slipping, tripping and stumbling without subsequent striking against object, initial encounter; Y93.E6 Activity, residential relocation; I10 Essential (primary) hypertension; Z79.891 Long term (current) use of opiate analgesic; Z79.899 Other long term (current) drug therapy; Z72.0 Tobacco use
CPT/HCPCS: 73590; 99283

== ENCOUNTER 2024-07-17 09:49 | Day surgery (SDC) | payer MEDICARE ==
[2012-07-08 01:00] VITALS: BP 106/70
[2024-07-17] MEDS ORDERED: Decadron 4 MG INJ IV ONE (09:50)
[2024-07-17] MEDS ORDERED: Sodium Chloride 0.9(Preservative Free) 10 ML IJ ONE (09:50)
[2024-07-17] MEDS ORDERED: DIPRIVAN 200 MG/20 ML IV ONE (12:06)
--- NOTE | 2024-07-17 13:47 | XRAY ---
Indication: Left L4-S1 transforaminal JIM. Intraoperative fluoroscopy provided for 13 seconds. 4 digital spot image submitted for interpretation demonstrates posterior needle tips projecting over the expected left L4 and L5 nerve roots. Small amount of contrast injected for needle tip placement. Correlate with intraoperative findings/report.
--- NOTE | 2024-07-17 14:53 | XRAY ---
13 seconds of fluoroscopy was used in surgery for a left L4-S1 transforaminal JIM.
== END 2024-07-17 12:35 | disposition home or self-care (01) ==
LOC: SDC-PAIN 09:49
PROVIDERS: ATTEND Psychiatry & Neurology Pain Medicine
DX: M54.16 Radiculopathy, lumbar region (principal)
CPT/HCPCS: 72100; 77003; J1100; J2704

== ENCOUNTER 2025-04-04 07:40 | Day surgery (SDC) | payer MEDICARE ==
[2025-04-04] MEDS ORDERED: CEFAZOLIN SODIUM ONE (07:51)
[2025-04-04] MEDS: Lactated Ringers 1,000 ML IV ONE (07:56)
[2025-04-04] MEDS ORDERED: SUBLIMAZE 100 MCG/2 ML ONE ×2 (09:27→10:54)
[2025-04-04] MEDS ORDERED: Zofran 4 MG/2 ML VIAL ONE (09:27)
[2025-04-04] MEDS ORDERED: propofoL IV ONE (09:27)
[2025-04-04] MEDS ORDERED: Xylocaine-Mpf 2% 5 Ml Vial ONE (09:27)
[2025-04-04] MEDS ORDERED: Versed 2 MG/2 ML Injection ONE (09:28)
[2025-04-04] MEDS ORDERED: OFIRMEV 100 ML IV ONE (09:28)
[2025-04-04] MEDS: NEURONTIN PO ONE (10:04)
[2025-04-04] MEDS: TYLENOL EXTRA STRENGTH 500 MG PO ONE (10:04)
[2025-04-04] MEDS ORDERED: MARCAINE 0.25% PF/ EPI 1:200,000 ONE (10:14)
[2025-04-04] MEDS ORDERED: DILAUDID 0.5 MG/0.5 ML SYRINGE ONE (11:05)
[2025-04-04 11:44] VITALS: RESP 16; O2SAT 97
[2025-04-04 12:02] VITALS: BP 140/80; PULSE 78; TEMP 97.2
--- NOTE | 2025-04-07 09:28 | OP ---
SURGERY DATE/TIME: 04/04/2025 [id number] PREOPERATIVE DIAGNOSES: Torn right medial and lateral menisci. POSTOPERATIVE DIAGNOSES: 1) Torn right medial and lateral menisci. 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 PROCEDURE: Arthroscopy of the left knee with partial medial and lateral meniscectomies and a 2-compartment chondroplasty involving the medial femoral condyle and tibial plateau and lateral tibial plateau. SURGEON: James Forbes II, ANESTHESIA: General. DESCRIPTION OF PROCEDURE AND FINDINGS: The patient was identified, and informed consent was obtained. The patient was taken to the operative suite and placed in a supine position on the operating table where the general anesthetic was administered. Once an appropriate level of anesthesia had been obtained, a tourniquet was placed high on the left thigh. The left lower extremity was then placed into the knee peña and prepped and draped in the usual sterile fashion. A standard time-out was taken. The leg was then exsanguinated and the tourniquet was then elevated to 350 mmHg. Following this, a standard superomedial portal was created with a #11 blade. Trocar and cannula were then placed into the knee, and the knee was distended with the arthroscopic pump. An inferolateral portal was created with an 11 blade, and the arthroscope was then placed in through a cannula. An 18-gauge spinal needle identified the level for the inferomedial portal and this was also created with a #11 blade. The knee was then inspected in a systematic fashion beginning in the suprapatellar pouch where there was some mild reactive synovitis which was incidentally shaved. The undersurface of the patella and the trochlear groove had no significant chondromalacia or degenerative changes. The gutters had no significant synovial hypertrophy or degenerative changes. The scope was placed into the medial compartment where a complex tear involving the middle and posterior horns of the medial meniscus was encountered. This was resected with the handheld biting instruments and shaved to a smooth transition with the shaver. The femoral condyle and tibial plateau had some grade 2 and 3 chondromalacia and the loose tissue was then debrided and a chondroplasty was performed. At this point, the scope was placed into the intercondylar notch region where the anterior cruciate ligament was inspected and noted to be intact. The scope was then placed into the lateral compartment where a complex tear involving the anterior and middle, as well as into the posterior horn of the lateral meniscus was encountered. This was resected with the handheld biting instruments and shaved to a smooth transition with the shaver. The tibial plateau on the lateral side had significant grade 3 chondromalacia and a chondroplasty was performed. The knee was then reinspected and copiously irrigated. No further pathology was identified. The instrumentation was removed, and the portal sites were closed with interrupted 4-0 nylon suture. The knee had been infiltrated with 30 mL of 0.25% Marcaine with epinephrine into the joint as well as the portal sites. The patient was then transferred to the cart and taken to the recovery room in satisfactory condition, having tolerated the procedure well.
== END 2025-04-04 12:07 | disposition home or self-care (01) ==
LOC: SDC 07:40
PROVIDERS: ATTEND Orthopaedic Surgery
DX: S83.222D Peripheral tear of medial meniscus, current injury, left knee, subsequent encounter (principal); S83.281A Other tear of lateral meniscus, current injury, right knee, initial encounter; M25.562 Pain in left knee; M94.261 Chondromalacia, right knee

== ENCOUNTER 2025-04-06 07:47 | Emergency (ER) | payer MEDICARE ==
[2025-04-06 08:28] VITALS: TEMP 98.2
--- NOTE | 2025-04-06 08:32 | ERPHSYRPT ---
- History of Present Illness Time Seen by Provider: 04/06/25 08:27 Source: patient, family, EMS Physician History: Patient is 70-year-old female recently had a left knee arthroscopic surgery for meniscal tear repair as well as popliteal cyst removal 3 to 4 days ago. After surgery she started having hyperesthesia on her left lower extremity. She is complaining of pain even on touching. Today morning when she wake up she suddenly passed out for few seconds. She denies any chest pain shortness of breath nausea vomiting headache. Patient usually smokes half pack per day for 57 years. She denies any other history of blood pressure or diabetes. In the emergency room patient is alert awake oriented to time place and person answering all the questions and denies any complaints. Witnessed: by family Prior Episodes: single episode today Timing/Duration: today Precipitating Factors: lightheadedness Context: sitting Loss of Consciousness: brief (seconds) Charcter of event(s): felt faint, almost passed out Allergies/Adverse Reactions: betamethasone [From Celestone] Allergy (Intermediate, Verified 04/04/25 07:48) itchy throat some tightness ketorolac [From Toradol] Allergy (Intermediate, Verified 04/04/25 07:48) Itching morphine Allergy (Intermediate, Verified 04/04/25 07:48) Itching Home Medications: Oxycodone HCl/Acetaminophen [Percocet 7.5-325 mg Tablet] 1 tab PO Q6-8HPRN PRN 06/19/24 [History] Gabapentin 600 mg PO HS 03/07/25 [History] Hx Tetanus, Diphtheria Vaccination/Date Given: Yes Hx Influenza Vaccination/Date Given: No Hx Pneumococcal Vaccination/Date Given: No Travel Risk - Emerging Infectious Disease Are you exhibiting symptoms associated with any current EIDs: No - Past Medical History Pertinent Past Medical History: Yes Neurological History: No Pertinent History ENT History: No Pertinent History Cardiac History: Hypertension Respiratory History: COPD, Pneumonia Endocrine Medical History: No Pertinent History Musculoskeletal History: Fibromyalgia, Osteoporosis GI Medical History: No Pertinent History History: No Pertinent History Psycho-Social History: Anxiety Female Reproductive Disorders: Other Other Medical History: nya malformation, had brain surgery 1996, - Past Surgical History Past Surgical History: Yes Neuro Surgical History: Neurological Surgery Cardiac: No Pertinent History Respiratory: No Pertinent History Gastrointestinal: No Pertinent History Genitourinary: No Pertinent History Musculoskeletal: No Pertinent History Female Surgical History: Hysterectomy Other Surgical History: Archold Chiari Malformation,egd colonscopy Significant Family History: no pertinent family hx - Social History Drug Use: none - Social Determinants of Health Will the patient participate in the screening: Declined to provide - Review of Systems Constitutional: No Fever, No Chills Eyes: No Symptoms Ears, Nose, & Throat: No Symptoms Respiratory: No Cough, No Dyspnea Cardiac: No Chest Pain, No Edema, No Syncope Abdominal/Gastrointestinal: No Abdominal Pain, No Nausea, No Vomiting, No Diarrhea Genitourinary Symptoms: No Dysuria Musculoskeletal: No Back Pain, No Neck Pain Skin: No Rash Neurological: No Dizziness, No Focal Weakness, No Sensory Changes Psychological: No Symptoms Endocrine: No Symptoms All Other Systems: Reviewed and Negative Physical Exam - Nursing Vital Signs Nursing Vital Signs: Initial Vital Signs Temperature 98.2 F 04/06/25 07:48 Pulse Rate 90 04/06/25 07:48 Respiratory Rate 20 04/06/25 07:48 Blood Pressure 124/78 04/06/25 07:48 O2 Sat by Pulse Oximetry 95 04/06/25 07:48 Pain Scale Pain Intensity 1 - [place] Coma Scale Best Eye Response (Tobias): (4) open spontaneously Best Verbal Response ([place]): (5) oriented Best Motor Response (T[place]ias): (6) obeys commands [place] Total: 15 - Physical Exam General Appearance: no apparent distress, alert Eye Exam: bilateral eye: PERRL, EOMI Ears, Nose, Throat Exam: normal ENT inspection, pharynx normal, moist mucous membranes Neck Exam: normal inspection, non-tender, supple, full range of motion Respiratory: normal breath sounds, lungs clear, No chest tenderness, No respiratory distress Cardiovascular: regular rate/rhythm, capillary refill <2 sec, No murmur, No pulse deficit Gastrointestinal: soft, No tenderness, No distention, No mass Back Exam: normal inspection, normal range of motion, No CVA tenderness, No vertebral tenderness Extremity Exam: normal inspection, normal range of motion, pelvis stable, No tenderness Mental Status: alert, 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, 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 Exam: normal speech, PERRL, No facial droop Coordination/Gait: normal finger to nose, normal gait, normal cerebellar function Motor/Sensory: no motor deficit, no sensory deficit, no pronator drift Skin Exam: normal color, warm, dry, No rash SpO2 Interpretation: normal SpO2: 98 O2 Delivery: Room Air - Course Nursing assessment & vital signs reviewed: Yes EKG Interpreted by Me: Sinus Rhythm Ordered Tests: Active Orders 24 hr Category Date Time Status CHEST WITH CONTRAST [CT] Stat Exams 04/06/25 09:16 Completed CBC W DIFF Stat Lab 04/06/25 08:35 Completed CMP Stat Lab 04/06/25 08:35 Completed D-DIMER QUANTITATIVE Stat Lab 04/06/25 08:35 Completed Medication Summary Discontinued Medications Generic Name Dose Route Start Last Admin Trade Name To PRN Reason Stop Dose Admin Sodium Chloride 1,000 mls @ 999 mls/hr 04/06/25 08:10 04/06/25 09:58 Sodium Chloride 0.9% 1000 Ml IV 04/06/25 09:10 Infused .Q1H1M STA Infusion Sodium Chloride Confirm 04/06/25 08:40 Sodium Chloride 0.9% 1000 Ml Administered 04/06/25 08:41 Dose 1,000 mls @ ud .ROUTE .[facility] Lab/Rad Data: Laboratory Result Diagrams 04/06/25 08:35 04/06/25 08:35 Laboratory Results 04/06/25 04/06/25 04/06/25 Range/Units 08:35 08:35 08:35 WBC 11.2 H (3.98-10.04) x10^3/uL RBC 4.29 (3.93-5.22) x10^6/uL Hgb 13.8 (11.2-15.7) g/dL Hct 41.3 (34.1-44.9) % MCV 96.3 H (79.4-94.8) fL MCH 32.2 (25.6-32.2) pg MCHC 33.4 (32.2-35.5) g/dL RDW 13.6 (11.7-14.4) % Plt Count 226 (182-369) x10^3/uL MPV 11.1 (9.4-12.3) fL Gran % 70.5 (34.0-71.1) % Immature Gran % (Auto) 0.4 (0.001-0.429) % Nucleat RBC Rel Count 0.0 (0.00-0.2) % Eos # (Auto) 0.15 (0.04-0.36) x10^3/uL Immature Gran # (Auto) 0.04 H (0.001-0.031) x10^3u/L Absolute Lymphs (auto) 2.36 (1.18-3.74) x10^3/uL Absolute Monos (auto) 0.65 (0.24-0.86) x10^3/uL Absolute Nucleated RBC 0.00 (0.00-0.012) x10^3u/L Lymphocytes % 21.1 (19.3-51.7) % Monocytes % 5.8 (4.7-12.5) % Eosinophils % 1.3 (0.7-5.8) % Basophils % 0.9 (0.1-1.2) % Absolute Granulocytes 7.89 H (1.56-6.13) x10^3/uL Basophils # 0.10 H (0.01-0.08) x10^3/uL D-Dimer 0.76 H* (0.0-0.50) mg/L Sodium 140 (135-145) mmol/L Potassium 3.6 (3.5-5.1) mmol/L Chloride 104 (98-107) mmol/L Carbon Dioxide 28 (22-30) mmol/L Anion Gap 11.1 (5-15) MEQ/L BUN 12 (7-17) mg/dL Creatinine 1.06 H (0.52-1.04) mg/dL Estimated GFR 57.2 ML/MIN Glucose 119 H (74-106) mg/dL Calcium 9.2 (8.4-10.2) mg/dL Total Bilirubin 0.50 (0.2-1.3) mg/dL AST 21 (14-36) U/L ALT 14 (0-35) U/L Alkaline Phosphatase 67 (38-126) U/L Serum Total Protein 6.7 (6.3-8.2) g/dL Albumin 3.9 (3.5-5.0) g/dL CT/CHEST WITH CONTRAST CLINICAL HISTORY: syncope, elevated D dimer COMPARISON: Prior CT 09/23/2023. TECHNIQUE: Contiguous 3.[address] angiographic images of the chest were acquired with the administration of intravenous contrast. Coronal and sagittal reconstructions were obtained. ___ was administered for post-contrast images. One of these 3D techniques was utilized: Maximum Intensity Pixel (MIP), 3D Reconstructed Images, Volume Rendered Images, Surface Shaded Rendering. One of the following dose reduction techniques was utilized for this exam: Automated exposure control, adjustment of the mA and/or kV according to patient size, and use of iterative reconstruction. FINDINGS: Aorta: Atherosclerotic changes of the aorta The thoracic aorta is normal in caliber. No evidence of aneurysm, dissection The aortic arch and descending thoracic aorta are unremarkable. Pulmonary Arteries: Pulmonary arteries are normal in size and opacification. No evidence of pulmonary embolism. No stenosis or filling defects. Superior Vena Cava (SVC) and Inferior Vena Cava (IVC): Normal opacification and caliber. No evidence of thrombus or obstruction. Coronary Arteries: Coronary arteries are well-opacified. No significant stenosis or atherosclerotic changes. Mediastinum: No mediastinal mass or lymphadenopathy. Normal appearance of the thymus. Heart: Normal size and morphology of the heart. No pericardial effusion. Lungs: Bilateral atelectatic bands Lungs are clear with no evidence of consolidation, nodules, or masses. No pleural effusion or thickening.( resolved minimal left pleural effusion ). Bones: No fractures or lytic/sclerotic lesions of the visualized bony structures. Normal alignment and bone density. Soft Tissues: Normal appearance of the visualized soft tissues. No abnormal masses or fluid collections. Right thyroid lobe calcified focus left breast calcified fibroadenoma IMPRESSION: 1. No evidence of pulmonary embolism ( unchanged ). 2. Atherosclerotic changes of the aorta. ( unchanged ) 3. No longer seen ground glass opacity nodule was seen at the anterior segment of the left upper lobe ( resolved ). 4. No longer seen of minimal left basal pleural effusion ( resolved) 5. Right thyroid lobe calcified focus ( unchanged ) 6. left breast calcified fibroadenoma ( unchanged ) - Progress Progress: improved Counseled pt/family regarding: lab results, diagnosis, need for follow-up, rad results Medical Desision Making - Independent Historian Additional History obtained from: Family - Diagnostic Testing Diagnostic test were ordered, analyzed, and reviewed by me: Yes Radiological Interpretation: Teleradiologist Report - Risk of complications Low Risk: Low risk of morbidity from additional dx testing or treatment - Departure Departure Disposition: Home Clinical Impression: Syncope, non cardiac, Status post arthroscopic knee surgery Condition: Stable Critical Care Time: No Referrals: NHUNG CASTANON [Primary Care Provider, [facility]ILY [facility]ACTICE] - Follow up/PCP as directed Instructions: Syncope (Fainting) (DC) Additional Instructions: Discharge/Care Plan VANNESA DOYLE was seen on 04/06/25 in the Emergency Room. The patient was counseled regarding Diagnosis,Lab results, Imaging studies, need for follow up and when to return to the Emergency Room. Prescriptions given: Discharge Note I have spoken with the patient and/or caregivers. I have explained the patient's condition, diagnosis and treatment plan based on the information available to me at this time. I have answered the patient's and/or caregiver's questions and addressed any concerns. The patient and/or caregivers have as good understanding of the patient's diagnosis, condition and treatment plan as can be expected at this point. The vital signs have been stable. The patient's condition is stable and appropriate for discharge from the emergency department. The patient will pursue further outpatient evaluation with the primary care physician or other designated or consulting physician as outlined in the discharge instructions. The patient and/or caregivers are agreeable to this plan of care and follow-up instructions have been explained in detail. The patient and/or caregivers have received these instruction. The patient/and or caregivers are aware that any significant change in condition or worsening of symptoms should prompt an immediate return to this or the closest emergency department or call 911. VANNESA DOYLE was seen on 04/06/25 n the Emergency Room. At that time you were treated for an emergent condition, during your visit Laboratory, Radiology and/or other procedures may have been ordered. It is very important that you follow-up with your Primary Care Physician NHUNG CASTANON within the next 24-48 hours to review your Emergency Room visit and the final results of testing that was ordered. Some test results such as Urine Cultures, Blood Cultures, and other cultures if ordered will not be finalized for 24-48 hours. If you do not have a Primary Care Provider please call the medical records department at [phone] ext [phone] to obtain a copy of your results or you may sign into our patient portal to obtain these results by visiting us @ [email or web address] and completing the following steps: 1. Click on the Patient Portal link 2. Click the Patient Self Enrollment Link to complete the enrollment form and entering your 3. Once the enrollment form is completed you will receive an email with a temporary ID and password at the email address you provided. 4. Next choose a user name and password. Your user name must be at least 4 characters long and your password must be at least 4 characters long. 5. Choose a security question from the list and provide your answer to the question. If you already have signed into the Health Portal you may access your Health Care Information 03/04 by the following steps: 1. Login to our website @ [email or web address] 2. Enter your original user name and password. FAQS The [facility] Health Portal is an online tool that contains your Lab Results, Radiology Reports, Visit History, Discharge Instructions and Health Summary Lab and Radiology Results will not be available for 72 hours on the portal. The Portal is a secure site, passwords are encryted and URLs are re-written so they cannot be copied and pasted. You and authorized family members are the only ones who can access your Portal. Also there is a timeout feature that protects your information if you leave the Portal page open. If you have technical difficulty please use the Contact Us link on the page this will allow you to submit any questions you have regarding the Portal or you may contact the Medical Record Department at [phone] ext [phone].
[2025-04-06 08:37] LABS: BASOPHIL % 0.9 % (0.1-1.2); Basophil (Absolute #) 0.10 x10^3/uL (0.01-0.08); Eosinophil (Absolute #) 0.15 x10^3/uL (0.04-0.36); Hematocrit 41.3 % (34.1-44.9); Hemoglobin 13.8 g/dL (11.2-15.7); IMMATURE GRAN # 0.04 x10^3u/L (0.001-0.031); IMMATURE GRAN % 0.4 % (0.001-0.429); Lymphocyte (Absolute #) 2.36 x10^3/uL (1.18-3.74); Mean Corpuscular Hemoglobin 32.2 pg (25.6-32.2); Mean Corpuscular Hgb Concent. 33.4 g/dL (32.2-35.5); Monocyte (Absolute #) 0.65 x10^3/uL (0.24-0.86); NUCLEATED RBC # 0.00 x10^3u/L (0.00-0.012); NUCLEATED RBC % 0.0 % (0.00-0.2); Platelet Count 226 x10^3/uL (182-369); Red Blood Count 4.29 x10^6/uL (3.93-5.22); White Blood Count 11.2 x10^3/uL (3.98-10.04)
[2025-04-06 08:50] LABS: Calcium 9.2 mg/dL (8.4-10.2); Carbon Dioxide 28.0 mmol/L (22-30); Creatinine 1 1.06 mg/dL (0.52-1.04); EST GLOMERULAR FILTRATION RATE 57.2 ML/MIN; Glucose 119.0 mg/dL (74-106); Potassium 3.6 mmol/L (3.5-5.1); SGOT/AST 21.0 U/L (14-36); SGPT/ALT 14.0 U/L (0-35); Total Protein 6.7 g/dL (6.3-8.2)
--- NOTE | 2025-04-06 11:22 | XRAY ---
CLINICAL HISTORY: syncope, elevated D dimer COMPARISON: Prior CT 09/23/2023. TECHNIQUE: Contiguous 3.[address] angiographic images of the chest were acquired with the administration of intravenous contrast. Coronal and sagittal reconstructions were obtained. ___ was administered for post-contrast images. One of these 3D techniques was utilized: Maximum Intensity Pixel (MIP), 3D Reconstructed Images, Volume Rendered Images, Surface Shaded Rendering. One of the following dose reduction techniques was utilized for this exam: Automated exposure control, adjustment of the mA and/or kV according to patient size, and use of iterative reconstruction. FINDINGS: Aorta: Atherosclerotic changes of the aorta The thoracic aorta is normal in caliber. No evidence of aneurysm, dissection The aortic arch and descending thoracic aorta are unremarkable. Pulmonary Arteries: Pulmonary arteries are normal in size and opacification. No evidence of pulmonary embolism. No stenosis or filling defects. Superior Vena Cava (SVC) and Inferior Vena Cava (IVC): Normal opacification and caliber. No evidence of thrombus or obstruction. Coronary Arteries: Coronary arteries are well-opacified. No significant stenosis or atherosclerotic changes. Mediastinum: No mediastinal mass or lymphadenopathy. Normal appearance of the thymus. Heart: Normal size and morphology of the heart. No pericardial effusion. Lungs: Bilateral atelectatic bands Lungs are clear with no evidence of consolidation, nodules, or masses. No pleural effusion or thickening.( resolved minimal left pleural effusion ). Bones: No fractures or lytic/sclerotic lesions of the visualized bony structures. Normal alignment and bone density. Soft Tissues: Normal appearance of the visualized soft tissues. No abnormal masses or fluid collections. Right thyroid lobe calcified focus left breast calcified fibroadenoma IMPRESSION: 1. No evidence of pulmonary embolism ( unchanged ). 2. Atherosclerotic changes of the aorta. ( unchanged ) 3. No longer seen ground glass opacity nodule was seen at the anterior segment of the left upper lobe ( resolved ). 4. No longer seen of minimal left basal pleural effusion ( resolved) 5. Right thyroid lobe calcified focus ( unchanged ) 6. left breast calcified fibroadenoma ( unchanged ) Electronically Signed by: Anthony Echols MD. (04/06/2025 11:20:03 EDT)
[2025-04-06 11:31] VITALS: O2SAT 98
[2025-04-06 11:38] VITALS: BP 135/84; PULSE 83; RESP 14
== END 2025-04-06 11:49 | disposition home or self-care (01) ==
LOC: ED 07:47
DX: R55 Syncope and collapse (principal); Z98.890 Other specified postprocedural states; I10 Essential (primary) hypertension; Z79.891 Long term (current) use of opiate analgesic; Z79.899 Other long term (current) drug therapy